=== PATIENT | female | born 1990 | race Hispanic/Latino ===

== ENCOUNTER 2020-11-08 06:05 | Emergency (ER) | payer OTHER ==
[2020-11-08 06:47] LABS: Hemoglobin 11.9 gm/dl (10.1-14.3); Mean Corpuscular HGB Conc 33 % (30-34); Mean Corpuscular Volume 82 fl (79-97); Platelet Count 316 K/mm3 (140-440); Red Blood Count 4.37 M/mm3 (3.65-5.03); Red Cell Distribution Width 14.1 % (13.2-15.2)
--- NOTE | 2020-11-08 06:59 | XRay Report ---
CHEST PA AND LATERAL VIEWS INDICATION: aCUTE chest pain. COMPARISON: None FINDINGS: Support devices: None Heart: Normal Lungs/Pleura: No acute pulmonary or pleural findings. IMPRESSION: 1. No active disease. Signer Name: Dane Wiggins MD Signed: 11/08/2020 6:55 AM Workstation Name: [id number]
[2020-11-08 07:01] LABS: INR 1.05 (0.87-1.13)
[2020-11-08 07:13] LABS: Alanine Aminotransferase 61 units/L (7-56); Albumin 4.1 g/dL (3.9-5); Blood Urea Nitrogen 9 mg/dL (7-17); Calcium 8.9 mg/dL (8.4-10.2); Hemolysis Index 22
[2020-11-08 07:18] LABS: BUN/Creatinine Ratio 15
[2020-11-08] MEDS ORDERED: SODIUM CHLORIDE 0.9% 1000 ML 1,000 ML IV ONE (07:39)
[2020-11-08] MEDS ORDERED: ONDANSETRON 4 MG/2 ML INJ IV ONE (07:39)
[2020-11-08] MEDS ORDERED: FAMOTIDINE 20 MG/2 ML INJ IV ONE ×2 (07:39→07:42)
[2020-11-08] MEDS ORDERED: MORPHINE 4 MG/1 ML INJ IV ONE (07:39)
[2020-11-08] MEDS ORDERED: PANTOPRAZOLE 40 MG TAB PO ONE ×2 (07:39→07:42)
[2020-11-08] MEDS ORDERED: ONDANSETRON 4 MG/2 ML INJ ONE (07:42)
[2020-11-08] MEDS ORDERED: SODIUM CHLORIDE 0.9% 1000 ML 1,000 ML ONE (07:42)
[2020-11-08] MEDS ORDERED: MORPHINE 4 MG/1 ML INJ ONE (07:43)
--- NOTE | 2020-11-08 07:47 | Emergency Department Report ---
ED General Adult HPI - General Chief complaint: Chest Pain Stated complaint: My left chest hurts, I am not sure if it is gas PUI?: No Time Seen by Provider: 11/08/20 07:20 Source: patient, RN notes reviewed Mode of arrival: Ambulatory Limitations: No Limitations - History of Present Illness Initial comments: The patient was evaluated in the emergency department for symptoms described in the history of present illness. He/she was evaluated in the context of the global COVID-19 pandemic, which necessitated consideration that the patient might be at risk for infection with the virus that causes COVID-19. Institutional protocols and algorithms that pertain to the evaluation of patients at risk for COVID-19 are in a state of rapid change based on information released by regulatory bodies including the CDC and federal and state organizations. These policies and algorithms were followed during the patient's care in the emergency department. Please note that these policies, procedures and recommendations changed on a rapid basis. During the entire history and physical examination, I am chaperoned by finishing tunnel operator/Human Resources District Manager Sandra Frankel This is a pleasant 30-year-old female. She is not known to myself previously. The patient presents to the ER today with a complaint of epigastric, right upper quadrant pain, and retrosternal, and left-sided chest wall pain. Pain started at 12:00 this morning. The pain is intermittent. It increases with palpation and deep inspiration. Positive nausea. Positive pleuritic discomfort. Her chest pain does not radiate to the back, arms or neck. No diaphoresis. No exertional shortness of breath. She takes oral contraceptives; estarylla ( Ethinyl estradiol and norgestimate). She denies a personal/family history of DVT pulmonary embolism, and ischemic heart disease, and has not recently consumed aspirin. Also reports and endoscopic diagnosis of H. pylori. Denies headache, neck pain, lower abdominal pain, urinary symptoms, loss of taste and smell, muscular aches, reports that she is not and has not delivered or given in the past 6 weeks. -: Gradual Location: chest, abdomen Radiation: back Severity scale (0 -10): 6 Quality: aching Consistency: other Improves with: other Worsens with: other Associated Symptoms: other - Related Data Previous Rx's Medication Instructions Recorded Last Taken Type Metoclopramide [Reglan] 10 mg PO Q6HR PRN #30 tab 11/08/20 Unknown Rx levoFLOXacin [Levaquin] 750 mg PO QDAY #9 tablet 11/08/20 Unknown Rx oxyCODONE /ACETAMINOPHEN [Percocet 1 tab PO Q6HR PRN #15 tab 11/08/20 Unknown Rx 5/325] Allergies Allergy/AdvReac Type Severity Reaction Status Date / Time No Known Allergies Allergy Unverified 11/08/20 06:09 ED Review of Systems ROS: Stated complaint: CHEST PAIN Other details as noted in HPI Constitutional: denies: fever Eyes: denies: vision change ENT: denies: epistaxis Respiratory: denies: cough Cardiovascular: chest pain Gastrointestinal: abdominal pain, nausea Genitourinary: denies: dysuria Musculoskeletal: back pain Neurological: denies: weakness Psychiatric: anxiety Hematological/Lymphatic: denies: easy bleeding ED Past Medical Hx - Past Medical History Previous Medical History?: Yes Additional medical history: Hypothyroid. ulcers - Surgical History Past Surgical History?: No - Social History Smoking Status: Never Smoker Substance Use Type: None - Medications Home Medications: Home Medications Medication Instructions Recorded Confirmed Last Taken Type Metoclopramide [Reglan] 10 mg PO Q6HR PRN #30 tab 11/08/20 Unknown Rx levoFLOXacin [Levaquin] 750 mg PO QDAY #9 tablet 11/08/20 Unknown Rx oxyCODONE /ACETAMINOPHEN [Percocet 1 tab PO Q6HR PRN #15 tab 11/08/20 Unknown Rx 5/325] ED Physical Exam - General Limitations: No Limitations General appearance: alert, anxious, obese - Head Head exam: Present: atraumatic, normocephalic - Eye Eye exam: Present: normal appearance, EOMI. Absent: nystagmus - ENT ENT exam: Present: normal exam, normal orophraynx, mucous membranes moist, normal external ear exam - Neck Neck exam: Present: normal inspection, full ROM. Absent: tenderness, meningismus - Respiratory Respiratory exam: Present: normal lung sounds bilaterally, chest wall tenderness. Absent: respiratory distress, wheezes, rales, rhonchi, stridor - Cardiovascular Cardiovascular Exam: Present: regular rate, normal rhythm, normal heart sounds. Absent: bradycardia, tachycardia, irregular rhythm, systolic murmur, diastolic murmur, rubs, gallop - GI/Abdominal GI/Abdominal exam: Present: soft, tenderness, other (There is epigastric and right upper quadrant tenderness to deep palpation.). Absent: distended, guar ding, rebound, rigid, pulsatile mass - Extremities Exam Extremities exam: Present: normal inspection, full ROM, other (2+ pulses noted in the bilateral upper and lower extremities. There is no palpable cord. negative Homans sign. Muscular compartments are soft. The pelvis is stable.). Absent: pedal edema, calf tenderness - Back Exam Back exam: Present: normal inspection, full ROM. Absent: tenderness, CVA tenderness (R), CVA tenderness (L), paraspinal tenderness, vertebral tenderness - Neurological Exam Neurological exam: Present: alert, oriented X3, normal gait, other (No facial droop. Tongue midline. Extraocular movements intact bilaterally. Facial sensation intact to light touch in V1, V2, V3 distribution bilaterally. 5 and a 5 strength in 4 extremities. Sensation intact to light touch in 4 extremities.). Absent: motor sensory deficit - Psychiatric Psychiatric exam: Present: normal affect, normal mood, anxious - Skin Skin exam: Present: warm, dry, intact, normal color. Absent: rash ED Course Vital Signs 11/08/20 11/08/20 11/08/20 06:16 07:39 07:48 Temperature 98.0 F Pulse Rate 80 Respiratory 18 Rate Blood Pressure Blood Pressure 120/68 [Right] O2 Sat by Pulse 97 98 Oximetry 11/08/20 11/08/20 11/08/20 08:00 08:08 08:15 Temperature Pulse Rate 71 78 Respiratory 22 18 Rate Blood Pressure 122/68 126/85 Blood Pressure [Right] O2 Sat by Pulse 98 99 99 Oximetry 11/08/20 11/08/20 11/08/20 09:12 09:46 10:30 Temperature Pulse Rate 81 67 69 Respiratory 20 25 H Rate Blood Pressure 126/85 127/77 110/68 Blood Pressure [Right] O2 Sat by Pulse 98 98 99 Oximetry - Reevaluation(s) Reevaluation #1: 11/08/20 07:50 Differential diagnosis, including but not limited to: Cholecystitis, pancreatitis, choledocholithiasis, GERD, gastritis, hiatal hernia, pneumonia, coronary artery disease, pulmonary embolism Assessment and plan: 30-year-old female with reproducible left-sided chest wall pain, who is not currently tachycardic, tachypneic or hypoxic, who denies DVT and pulmonary embolism risk factors, low risk by Wells criteria for pulmonary embolism, but does take combination oral contraceptive use, who is an unremarkable EKG, is low risk for major adverse cardiac event as per heart score, with equal pulses in the upper and lower extremities, unremarkable x-ray of the chest, no pulsatile abdominal mass, this is very unlikely to be aortic disease. She also has right upper quadrant tenderness, transaminitis, and elevated lipase. We will start with right upper quadrant ultrasound, send D-dimer to risk stratify for pulmonary embolism, and treat patient's symptoms. We have discussed this plan of care with the patient, who verbalized understanding and is amenable to this plan of care. Repeat troponin/repeat EKG ordered, time for 830 this morning. 11/08/20 09:38 Patient is reassessed. EKG unchanged x2. Troponin negative x2. D-dimer negative. Right upper quadrant ultrasound pending interpretation. Patient states she feels improved. 11/08/20 11:20 Final reassessment. Right upper quadrant ultrasound shows evidence of stones, without cholecystitis. CT scan abdomen pelvis shows no CT evidence of pancreatitis, no CT evidence of cholecystitis, and very mild gallbladder wall edema. Abdomen tenderness is improved. No active vomiting. Tolerating liquid feeds. Contacted our general surgeon on-call, Dr. Aleman, I discussed the patient's history, physical, pertinent laboratory studies and imaging studies with Dr. Aleman. She is in agreement that since the patient has clinically improved, has a soft belly at this time, tolerating liquid feeds, with no active vomiting, it would be reasonable to start the patient on oral antibiotics, and have the patient closely follow-up as an outpatient for further evaluation. Specifically advises that emergent cholecystectomy is not necessary or indicated at this time. I am in agreement. I have gone back and discussed this with the patient. I informed the patient of her laboratory studies, CAT scan and ultrasound findings, and I engage the patient in shared decision making. I did offer the patient admission, versus discharge with oral antibiotics and close outpatient follow-up with return pre cautions. Patient prefers to be discharged with oral antibiotics, and indicates reliability to follow-up. Therefore, through shared decision-making, patient will be discharged with oral antibiotics pain medication, nausea medication, and instructions to follow-up. Return precautions are reviewed. Patient is currently alert, oriented, sober, exhibits decision-making capacity, is free from distracting injury, and is reliable to follow-up, or return if clinically worsened. I will also give the patient copies of her laboratory studies, and ultrasound/CT scan abdomen pelvis reports. Reevaluation #2: 11/09/20 10:38 Called patient to follow-up today. She is feeling "okay." She is able to eat and drink, and has felt improved after pain medication and antibiotics. She is going to follow-up with her primary care doctor tomorrow. Patient endorses reliability to follow-up, and I have again reiterated return precautions ED Medical Decision Making - Lab Data Result diagrams: 11/08/20 06:30 11/08/20 06:30 Vital Signs 11/08/20 11/08/20 06:16 07:39 Temperature 98.0 F Pulse Rate 80 Respiratory 18 Rate Blood Pressure 120/68 [Right] O2 Sat by Pulse 97 Oximetry Lab Results 11/08/20 11/08/20 11/08/20 Range/Units 06:30 06:30 06:30 WBC 7.8 (4.5-11.0) K/mm3 RBC 4.37 (3.65-5.03) M/mm3 Hgb 11.9 (10.1-14.3) gm/dl Hct 36.0 (30.3-42.9) % MCV 82 (79-97) fl MCH 27 L (28-32) pg MCHC 33 (30-34) % RDW 14.1 (13.2-15.2) % Plt Count 316 (140-440) K/mm3 PT 13.6 (12.2-14.9) Sec. INR 1.05 (0.87-1.13) Sodium 137 (137-145) mmol/L Potassium 4.1 (3.6-5.0) mmol/L Chloride 103.6 (98-107) mmol/L Carbon Dioxide 23 (22-30) mmol/L Anion Gap 15 mmol/L BUN 9 (7-17) mg/dL Creatinine 0.6 (0.6-1.2) mg/dL Estimated GFR > 60 ml/min BUN/Creatinine Ratio 15 % Glucose 155 H (65-100) mg/dL Calcium 8.9 (8.4-10.2) mg/dL Magnesium 1.80 (1.7-2.3) mg/dL Total Bilirubin 0.70 (0.1-1.2) mg/dL AST 111 H (5-40) units/L ALT 61 H (7-56) units/L Alkaline Phosphatase 106 (35-129) units/L Total Creatine Kinase 61 (30-135) units/L Troponin T < 0.010 (0.00-0.029) ng/mL Total Protein 7.6 (6.3-8.2) g/dL Albumin 4.1 (3.9-5) g/dL Albumin/Globulin Ratio 1.2 % Lipase 402 H (13-60) units/L HCG, Quant (0-4) mIU/mL 11/08/20 Range/Units 06:30 WBC (4.5-11.0) K/mm3 RBC (3.65-5.03) M/mm3 Hgb (10.1-14.3) gm/dl Hct (30.3-42.9) % MCV (79-97) fl MCH (28-32) pg MCHC (30-34) % RDW (13.2-15.2) % Plt Count (140-440) K/mm3 PT (12.2-14.9) Sec. INR (0.87-1.13) Sodium (137-145) mmol/L Potassium (3.6-5.0) mmol/L Chloride (98-107) mmol/L Carbon Dioxide (22-30) mmol/L Anion Gap mmol/L BUN (7-17) mg/dL Creatinine (0.6-1.2) mg/dL Estimated GFR ml/min BUN/Creatinine Ratio % Glucose (65-100) mg/dL Calcium (8.4-10.2) mg/dL Magnesium (1.7-2.3) mg/dL Total Bilirubin (0.1-1.2) mg/dL AST (5-40) units/L ALT (7-56) units/L Alkaline Phosphatase (35-129) units/L Total Creatine Kinase (30-135) units/L Troponin T (0.00-0.029) ng/mL Total Protein (6.3-8.2) g/dL Albumin (3.9-5) g/dL Albumin/Globulin Ratio % Lipase (13-60) units/L HCG, Quant < 2 (0-4) mIU/mL - EKG Data -: EKG Interpreted by Fl EKG shows normal: sinus rhythm Rate: normal - EKG Data 11/08/20 07:52 EKG interpreted by myself at 6:25 AM. Sinus rhythm, 76 bpm, normal axis, normal intervals, unremarkable EKG, low voltage in the inferior leads, there is no prior for comparison, this EKG is not a STEMI. - Radiology Data Radiology results: pending, report reviewed, image reviewed X-ray the chest is negative for acute findings. CT ABDOMEN AND PELVIS WITH CONTRAST INDICATION / CLINICAL INFORMATION: Cholelithiasis, pancreatitis, transaminitis x1day [id number] 100ml. TECHNIQUE: Axial CT images were obtained through the abdomen and pelvis after IV contrast. All CT scans at this location are performed using CT dose reduction for ALARA by means of automated exposure control. COMPARISON: Ultrasound dated 11/08/20 FINDINGS: LOWER CHEST: No significant abnormality. LIVER: Liver is diffusely hypodense characteristic of fatty infiltration. No focal abnormality. GALLBLADDER: No calcified gallstones. Mild gallbladder wall edema but no inflammation. BILE DUCTS: No significant abnormality. PANCREAS: No significant abnormality. SPLEEN: No significant abnormality. ADRENALS: No significant abnormality. RIGHT KIDNEY / URETER: No significant abnormality. LEFT KIDNEY / URETER: No significant abnormality. STOMACH / SMALL BOWEL: No significant abnormality. COLON: No significant abnormality. APPENDIX: No significant abnormality. PERITONEUM: No free fluid. No free air. No fluid collection. LYMPH NODES: No significant adenopathy. AORTA / ARTERIES: No significant abnormality. IVC / VEINS: No significant abnormality. URINARY BLADDER: No significant abnormality. REPRODUCTIVE ORGANS: No significant abnormality. ADDITIONAL FIN DINGS: None. SKELETAL SYSTEM: No significant abnormality. IMPRESSION: 1. Hepatic steatosis. 2. No calcified gallstones but mild gallbladder wall edema without inflammation. No CT evidence for acute cholecystitis. 3. No CT evidence for pancreatitis. Signer Name: Dustin Hamilton MD Signed: 11/08/2020 9:45 AM Workstation Name: [id number] ULTRASOUND ABDOMEN, LIMITED INDICATION / CLINICAL INFORMATION: Right upper quadrant pain. COMPARISON: None available. FINDINGS: PANCREAS: Visualized por tion shows no significant abnormality. LIVER: Liver is diffusely echogenic and heterogeneous characteristic of fatty infiltration. GALLBLADDER: Contracted around multiple gallstones. No gallbladder wall thickening or edema. BILE DUCTS: No significant abnormality. Common bile duct measures 3 mm. FREE FLUID: None. ADDITIONAL FINDINGS: None. IMPRESSION: 1. Cholelithiasis without definite sonographic evidence for acute cholecystitis. 2. Hepatic steatosis. Signer Name: Dustin Hamilton MD Signed: 11/08/2020 8:45 AM Workstation Name: [id number] Critical care attestation.: If time is entered above; I have spent that time in minutes in the direct care of this critically ill patient, excluding procedure time. ED Disposition Clinical Impression: Chest wall pain, Right upper quadrant pain, Transaminitis, Elevated lipase, Cholelithiases Disposition: - TO HOME OR SELFCARE Is pt being admited?: No Does the pt Need Aspirin: No Condition: Good Instructions: Cholelithiasis, [id number], Acute Pancreatitis Additional Instructions: Do not take Motrin, ibuprofen, Naprosyn, Aleve, heavy or spicy foods. Avoid consumption of alcohol. Avoid consumption of fatty foods, rich foods, and advance diet as tolerated. Take the pain medication as needed and directed. Exercise caution when taking Percocet, do not drive or consume alcohol, or make important decisions when taking this medication. Be careful with this medication, as it may cause sleepiness, it may be habit-forming, and it may cause constipation. Please follow-up with a general surgeon within the next 3 to 5 days. Do not take metformin medication for the next 2 days, if patient takes this medication. Dr. Aleman is a local general surgeon at this hospital, however, it does not appear that she is in the patient's insurance network. Therefore, the patient should contact her primary care doctor or her insurance provider, and find a general surgeon who is in her network. Patient is going to be given copies of her laboratory studies and radiology studies. Please return to the emergency room right away with new pain, worsened pain, migration of pain, projectile vomiting, change in mental status, confusion, inability to tolerate liquid feeds, new, worsened or different symptoms not present on the initial emergency room evaluation, intractable fevers. Patient may take Tylenol [id number] as needed for pain, in conjunction with her Percocet. Please note that Percocet has 325 mg of Tylenol, maximum daily dose of Tylenol should not exceed 3 g per 24 hours. Prescriptions: levoFLOXacin [Levaquin] 750 mg PO QDAY #9 tablet oxyCODONE /ACETAMINOPHEN [Percocet 5/325] 1 tab PO Q6HR PRN #15 tab PRN Reason: Pain , Severe (7-10) Metoclopramide [Reglan] 10 mg PO Q6HR PRN #30 tab PRN Reason: Nausea Referrals: NARCSIA ALEMAN MD [Staff Physician] - 3-5 Days
--- NOTE | 2020-11-08 09:49 | Ultrasound Report ---
ULTRASOUND ABDOMEN, LIMITED INDICATION / CLINICAL INFORMATION: Right upper quadrant pain. COMPARISON: None available. FINDINGS: PANCREAS: Visualized portion shows no significant abnormality. LIVER: Liver is diffusely echogenic and heterogeneous characteristic of fatty infiltration. GALLBLADDER: Contracted around multiple gallstones. No gallbladder wall thickening or edema. BILE DUCTS: No significant abnormality. Common bile duct measures 3 mm. FREE FLUID: None. ADDITIONAL FINDINGS: None. IMPRESSION: 1. Cholelithiasis without definite sonographic evidence for acute cholecystitis. 2. Hepatic steatosis. Signer Name: Dustin Hamilton MD Signed: 11/08/2020 9:45 AM Workstation Name: [id number]
[2020-11-08 10:46] VITALS: BP 110/68
--- NOTE | 2020-11-08 10:50 | Cat Scan Report ---
CT ABDOMEN AND PELVIS WITH CONTRAST INDICATION / CLINICAL INFORMATION: Cholelithiasis, pancreatitis, transaminitis x1day [id number] 100ml. TECHNIQUE: Axial CT images were obtained through the abdomen and pelvis after IV contrast. All CT sc ans at this location are performed using CT dose reduction for ALARA by means of automated exposure c ontrol. COMPARISON: Ultrasound dated 11/08/20 FINDINGS: LOWER CHEST: No significant abnormality. LIVER: Liver is diffusely hypodense characteristic of fatty infiltration. No focal abnormality. GALLBLADDER: No calcified gallstones. Mild gallbladder wall edema but no inflammation. BILE DUCTS: No significant abnormality. PANCREAS: No significant abnormality. SPLEEN: No significant abnormality. ADRENALS: No significant abnormality. RIGHT KIDNEY / URETER: No significant abnormality. LEFT KIDNEY / URETER: No significant abnormality. STOMACH / SMALL BOWEL: No significant abnormality. COLON: No significant abnormality. APPENDIX: No significant abnormality. PERITONEUM: No free fluid. No free air. No fluid collection. LYMPH NODES: No significant adenopathy. AORTA / ARTERIES: No significant abnormality. IVC / VEINS: No significant abnormality. URINARY BLADDER: No significant abnormality. REPRODUCTIVE ORGANS: No significant abnormality. ADDITIONAL FINDINGS: None. SKELETAL SYSTEM: No significant abnormality. IMPRESSION: 1. Hepatic steatosis. 2. No calcified gallstones but mild gallbladder wall edema without inflammation. No CT evidence for a cute cholecystitis. 3. No CT evidence for pancreatitis. Signer Name: Dustin Hamilton MD Signed: 11/08/2020 10:45 AM Workstation Name: [id number]
[2020-11-08] MEDS ORDERED: levoFLOXacin 750 MG TAB PO ONE (11:20)
[2020-11-08] MEDS ORDERED: levoFLOXacin 750 MG TAB ONE (11:31)
--- NOTE | 2020-11-10 11:08 | Electrocardiograph Report ---
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
--- NOTE | 2020-11-10 11:08 | Electrocardiograph Report ---
[facility] Test Date: 2020-11-08 Test Time: 09:33:17 Pat Name: LAKEISHA SIDDIQI Department: Room: Gender: F [employer] [place]: SAMMY : 1990 Requested By: LENNIE ACEVEDO Order Number: [id number] Reading MD: Maxim Healy Measurements Intervals [place] Rate: 67 P: 5 NE: 161 QRS: 14 QRSD: 84 T: -3 QT: 391 QTc: 414 Interpretive Statements Sinus rhythm No previous ECG available for comparison Electronically Signed On 11-10-2020 8:08:33 PDT by Maxim Healy
== END 2020-11-08 12:36 | disposition home or self-care (01) ==
LOC: ED 06:05
DX: K80.20 Calculus of gallbladder without cholecystitis without obstruction (principal); R07.89 Other chest pain; R10.11 Right upper quadrant pain; R74.01 Elevation of levels of liver transaminase levels; R74.8 Abnormal levels of other serum enzymes; E03.9 Hypothyroidism, unspecified; Z79.899 Other long term (current) drug therapy
CPT/HCPCS: 36415; 71046; 74177; 76705; 80053; 82550; 83690; 83735; 84484; 84702; 85027; 85379; 85610; 93005; 96361; 96374; 96375; 99285; J2270; J2405; J7030; Q9967

== ENCOUNTER 2020-11-09 13:19 | Observation (INO) | payer OTHER ==
[2020-11-09] MEDS ORDERED: ONDANSETRON 4 MG/2 ML INJ IV ONE (13:36)
[2020-11-09] MEDS ORDERED: HYDROmorphone 1 MG/1 ML INJ IV ONE (13:36)
[2020-11-09] MEDS ORDERED: LACTATED RINGERS 1,000 ML IV ONE (13:37)
--- NOTE | 2020-11-09 13:37 | Emergency Department Report ---
ED General Adult HPI - General Chief complaint: Abdominal Pain Stated complaint: ABD PAIN PUI?: No Time Seen by Provider: 11/09/20 13:27 Source: patient, RN notes reviewed, old records reviewed Mode of arrival: Ambulatory Limitations: No Limitations - History of Present Illness Initial comments: The patient was evaluated in the emergency department for symptoms described in the history of present illness. He/she was evaluated in the context of the global COVID-19 pandemic, which necessitated consideration that the patient m ight be at risk for infection with the virus that causes COVID-19. Institutional protocols and algorithms that pertain to the evaluation of patients at risk for COVID-19 are in a state of rapid change based on information released by regulatory bodies including the CDC and federal and state organizations. These policies and algorithms were followed during the patient's care in the emergency department. Please note that these policies, procedures and recommendations changed on a rapid basis. This is a 30-year-old female. I evaluated her yesterday. She presented to the ER with epigastric and chest wall pain, was found to have evidence of pancreatitis, transaminitis, and nonspecific gallbladder wall edema. The patient elected to be discharged with oral antibiotics, pain medication, nausea medication, after extensive discussion, including a risk-benefit analysis, and shared decision making. I called earlier on this morning, and she stated that she was doing "okay, but she called me a few hours later, with a complaint of recurrent/worsening abdominal pain, nausea and vomiting. She was able to take her Levaquin, denies fever, but endorses diffuse abdominal cramping, nausea, lightheadedness. Her symptoms so far are constant. She only ate grapes today. -: Sudden Location: abdomen Radiation: non-radiation Quality: aching Consistency: constant Improves with: none Worsens with: eating - Related Data Previous Rx's Medication Instructions Recorded Last Taken Type Metoclopramide [Reglan] 10 mg PO Q6HR PRN #30 tab 11/08/20 Unknown Rx levoFLOXacin [Levaquin] 750 mg PO QDAY #9 tablet 11/08/20 Unknown Rx oxyCODONE /ACETAMINOPHEN [Percocet 1 tab PO Q6HR PRN #15 tab 11/08/20 Unknown Rx 5/325] Allergies Allergy/AdvReac Type Severity Reaction Status Date / Time No Known Allergies Allergy Unverified 11/08/20 06:09 ED Review of Systems ROS: Stated complaint: ABD PAIN Other details as noted in HPI Constitutional: malaise, weakness. denies: fever Eyes: denies: eye discharge ENT: denies: epistaxis Respiratory: denies: cough Cardiovascular: denies: chest pain Gastrointestinal: abdominal pain, nausea, vomiting Genitourinary: denies: dysuria Musculoskeletal: denies: back pain Neurological: weakness Psychiatric: anxiety Hematological/Lymphatic: denies: easy bleeding ED Past Medical Hx - Past Medical History Previous Medical History?: Yes Additional medical history: Hypothyroid. ulcers, Abd pain - Surgical History Past Surgical History?: No - Social History Smoking Status: Never Smoker Substance Use Type: None - Medications Home Medications: Home Medications Medication Instructions Recorded Confirmed Last Taken Type Metoclopramide [Reglan] 10 mg PO Q6HR PRN #30 tab 11/08/20 11/10/20 Unknown Rx levoFLOXacin [Levaquin] 750 mg PO QDAY #9 tablet 11/08/20 11/10/20 Unknown Rx oxyCODONE /ACETAMINOPHEN [Percocet 1 tab PO Q6HR PRN #15 tab 11/08/20 11/10/20 Unknown Rx 5/325] ED Physical Exam - General Limitations: No Limitations General appearance: anxious, in distress, obese - Head Head exam: Present: atraumatic, normocephalic - Eye Eye exam: Present: normal appearance, EOMI. Absent: nystagmus - ENT ENT exam: Present: normal exam, normal orophraynx, mucous membranes moist, normal external ear exam - Neck Neck exam: Present: normal inspection, full ROM. Absent: tenderness, meningismus - Respiratory Respiratory exam: Present: normal lung sounds bilaterally. Absent: respiratory distress, wheezes, rales, rhonchi, stridor, decreased breath sounds - Cardiovascular Cardiovascular Exam: Present: regular rate, normal rhythm, normal heart sounds. Absent: bradycardia, tachycardia, irregular rhythm, systolic murmur, diastolic murmur, rubs, gallop - GI/Abdominal GI/Abdominal exam: Present: soft, tenderness, other (There is epigastric tenderness. There is bilateral upper quadrant tenderness.). Absent: distended, guarding, rebound, rigid, pulsatile mass - Extremities Exam Extremities exam: Present: normal inspection, full ROM, other (2+ pulses noted in the bilateral upper and lower extremities. There is no palpable cord. negative Homans sign. Muscular compartments are soft. The pelvis is stable.). Absent: pedal edema, calf tenderness - Back Exam Back exam: Present: normal inspection, full ROM. Absent: tenderness, CVA tenderness (R), CVA tenderness (L), paraspinal tenderness, vertebral tenderness - Neurological Exam Neurological exam: Present: alert, normal gait, other (No facial droop. Tongue midline. Extraocular movements intact bilaterally. Facial sensation intact to light touch in V1, V2, V3 distribution bilaterally. 5 and a 5 strength in 4 extremities. Sensation intact to light touch in 4 extremities.). Absent: motor sensory deficit - Psychiatric Psychiatric exam: Present: anxious - Skin Skin exam: Present: warm, dry, intact, normal color. Absent: rash ED Course Vital Signs 11/09/20 11/09/20 11/09/20 13:27 13:47 14:00 Temperature 97.4 F L Pulse Rate 83 73 73 Respiratory 16 13 Rate Blood Pressure 134/79 126/81 Blood Pressure 120/86 [Left] O2 Sat by Pulse 98 100 Oximetry 11/09/20 11/09/20 11/09/20 14:30 16:03 16:15 Temperature Pulse Rate 74 79 72 Respiratory 20 22 Rate Blood Pressure 138/72 122/75 119/72 Blood Pressure [Left] O2 Sat by Pulse 98 97 Oximetry 11/09/20 11/09/20 11/09/20 16:31 16:45 17:01 Temperature Pulse Rate 73 71 81 Respiratory 22 19 17 Rate Blood Pressure 114/71 119/72 114/70 Blood Pressure [Left] O2 Sat by Pulse 97 97 97 Oximetry 11/09/20 11/09/20 11/09/20 18:49 18:51 19:01 Temperature Pulse Rate 62 Respiratory Rate Blood Pressure 114/73 114/73 Blood Pressure 114/73 [Left] O2 Sat by Pulse 99 100 99 Oximetry 11/09/20 11/09/20 11/09/20 19:31 20:01 20:31 Temperature Pulse Rate Respiratory Rate Blood Pressure 113/71 126/71 114/68 Blood Pressure [Left] O2 Sat by Pulse 98 96 98 Oximetry 11/09/20 11/09/20 11/09/20 20:47 20:58 21:01 Temperature Pulse Rate Respiratory Rate Blood Pressure 121/77 121/77 121/77 Blood Pressure [Left] O2 Sat by Pulse 99 98 98 Oximetry 11/09/20 11/09/20 11/09/20 21:11 21:21 21:31 Temperature Pulse Rate Respiratory Rate Blood Pressure 120/66 110/68 110/68 Blood Pressure [Left] O2 Sat by Pulse 98 99 98 Oximetry 11/09/20 11/09/20 21:41 21:51 Temperature Pulse Rate Respiratory Rate Blood Pressure 118/67 110/63 Blood Pressure [Left] O2 Sat by Pulse 98 98 Oximetry - Reevaluation(s) Reevaluation #1: 11/09/20 13:54 Differential diagnosis, including but not limited to: Pancreatitis, biliary colic, gallstone pancreatitis, choledocholithiasis, cholecystitis Assessment and plan: 30-year-old female with worsening abdominal symptoms, who returned to the emergency room after she called me up on the phone, and I instructed her to come back for repeat evaluation. Suspect worsening of probable gallstone pancreatitis. This will likely require admission. We will treat her symptoms, and repeat laboratory studies. I will discuss with the [facility] surgeon on-call once her initial laboratory studies have resulted. I discussed this plan of care with the patient, who verbalized understanding, and is amenable to this plan of care. 11/09/20 18:33 Right upper quadrant ultrasound is reviewed and appreciated. It does not demonstrate. Cholecystitis, however, it does demonstrate a distended gallbladder, and the soil technologist reported a positive sonographic Keane sign to myself. I have contacted my general surgeon on-call, Dr. Aleman, And have discussed the patient's history, physical, and pertinent laboratory studies and imaging findings. Admission is recommended for fluids, antibiotics, supportive care, and acquisition of nuclear medicine HIDA study. Dr. Aleman will follow in consultation. I have discussed this plan of care with the patient, who is agreeable to the aforementioned plan of care. Hospital physician, Dr. Samuel Echevarria to admit patient to the medical service. Medical decision makin-year-old female with known transaminitis, known presence of choledocholithiasis, failed outpatient management with antiemetics, pain medication, nausea medication, to be admitted for supportive care, serial abdominal exams, urgent general surgical consultation, and urgent acquisition of HIDA scan to evaluate biliary colic versus cholecystitis. ED Medical Decision Making - Lab Data Result diagrams: 11/10/20 04:28 11/10/20 04:28 Vital Signs 11/09/20 11/09/20 13:27 13:47 Temperature 97.4 F L Pulse Rate 83 73 Respiratory 16 Rate Blood Pressure 134/79 Blood Pressure 120/86 [Left] O2 Sat by Pulse 98 100 Oximetry Vital Signs 11/09/20 11/09/20 13:27 13:47 Temperature 97.4 F L Pulse Rate 83 73 Respiratory 16 Rate Blood Pressure 134/79 Blood Pressure 120/86 [Left] O2 Sat by Pulse 98 100 Oximetry Lab Results 11/09/20 11/09/20 11/09/20 Range/Units 13:52 13:52 13:52 WBC 10.3 (4.5-11.0) K/mm3 RBC 4.38 (3.65-5.03) M/mm3 Hgb 12.1 (10.1-14.3) gm/dl Hct 36.6 (30.3-42.9) % MCV 84 (79-97) fl MCH 28 (28-32) pg MCHC 33 (30-34) % RDW 14.2 (13.2-15.2) % Plt Count 312 (140-440) K/mm3 Lymph % (Auto) 10.3 L (13.4-35.0) % [place] % (Auto) 6.6 (0.0-7.3) % Eos % (Auto) 0.9 (0.0-4.3) % Baso % (Auto) 0.4 (0.0-1.8) % Lymph # (Auto) 1.1 L (1.2-5.4) K/mm3 [place] # (Auto) 0.7 (0.0-0.8) K/mm3 Eos # (Auto) 0.1 (0.0-0.4) K/mm3 Baso # (Auto) 0.0 (0.0-0.1) K/mm3 Seg Neutrophils % 81.8 H (40.0-70.0) % Seg Neutrophils # 8.4 H (1.8-7.7) K/mm3 PT 14.7 (12.2-14.9) Sec. INR 1.15 H (0.87-1.13) APTT 28.2 (24.2-36.6) Sec. Sodium 135 L (137-145) mmol/L Potassium 3.8 (3.6-5.0) mmol/L Chloride 99.6 (98-107) mmol/L Carbon Dioxide 22 (22-30) mmol/L Anion Gap 17 mmol/L BUN 8 (7-17) mg/dL Creatinine 0.7 (0.6-1.2) mg/dL Estimated GFR > 60 ml/min BUN/Creatinine Ratio 11 % Glucose 90 (65-100) mg/dL Lactic Acid (0.7-2.0) mmol/L Calcium 9.1 (8.4-10.2) mg/dL Magnesium 1.60 L (1.7-2.3) mg/dL Total Bilirubin 0.40 (0.1-1.2) mg/dL AST 74 H (5-40) units/L ALT 109 H (7-56) units/L Alkaline Phosphatase 103 (35-129) units/L Total Creatine Kinase 53 (30-135) units/L Total Protein 7.0 (6.3-8.2) g/dL Albumin 3.8 L (3.9-5) g/dL Albumin/Globulin Ratio 1.2 % Lipase 43 (13-60) units/L // Range/Units 13:52 WBC (4.5-11.0) K/mm3 RBC (3.65-5.03) M/mm3 Hgb (10.1-14.3) gm/dl Hct (30.3-42.9) % MCV (79-97) fl MCH (28-32) pg MCHC (30-34) % RDW (13.2-15.2) % Plt Count (140-440) K/mm3 Lymph % (Auto) (13.4-35.0) % [place] % (Auto) (0.0-7.3) % Eos % (Auto) (0.0-4.3) % Baso % (Auto) (0.0-1.8) % Lymph # (Auto) (1.2-5.4) K/mm3 [place] # (Auto) (0.0-0.8) K/mm3 Eos # (Auto) (0.0-0.4) K/mm3 Baso # (Auto) (0.0-0.1) K/mm3 Seg Neutrophils % (40.0-70.0) % Seg Neutrophils # (1.8-7.7) K/mm3 PT (12.2-14.9) Sec. INR (0.87-1.13) APTT (24.2-36.6) Sec. Sodium (137-145) mmol/L Potassium (3.6-5.0) mmol/L Chloride (98-107) mmol/L Carbon Dioxide (22-30) mmol/L Anion Gap mmol/L BUN (7-17) mg/dL Creatinine (0.6-1.2) mg/dL Estimated GFR ml/min BUN/Creatinine Ratio % Glucose (65-100) mg/dL Lactic Acid 1.60 (0.7-2.0) mmol/L Calcium (8.4-10.2) mg/dL Magnesium (1.7-2.3) mg/dL Total Bilirubin (0.1-1.2) mg/dL AST (5-40) units/L ALT (7-56) units/L Alkaline Phosphatase (35-129) units/L Total Creatine Kinase (30-135) units/L Total Protein (6.3-8.2) g/dL Albumin (3.9-5) g/dL Albumin/Globulin Ratio % Lipase (13-60) units/L - EKG Data -: EKG Interpreted by Md EKG shows normal: sinus rhythm Rate: normal - EKG Data When compared to previous EKG there are: no significant change 11/09/20 13:54 EKG time of interpretation, 13: 50 Sinus rhythm, 79 bpm. Normal axis, normal intervals, low voltage in the inferior leads. This EKG is not a STEMI. Appears to be grossly unchanged from prior EKG. - Radiology Data Radiology results: pending, report reviewed, image reviewed Right upper quadrant ultrasound from yesterday, CT scan abdomen pelvis, x-ray from chest yesterday reviewed and appreciated. ULTRASOUND ABDOMEN, LIMITED INDICATION / CLINICAL INFORMATION: Right upper quadrant pain. COMPARISON: None available. FINDINGS: PANCREAS: Visualized portion shows no significant abnormality. LIVER: Liver is diffusely echogenic and heterogeneous characteristic of fatty infiltration. GALLBLADDER: Contracted around multiple gallstones. No gallbladder wall thickening or edema. BILE DUCTS: No significant abnormality. Common bile duct measures 3 mm. FREE FLUID: None. ADDITIONAL FINDINGS: None. IMPRESSION: 1. Cholelithiasis without definite sonographic evidence for acute cholecystitis. 2. Hepatic steatosis. Signer Name: Dustin Hamilton MD Signed: 11/08/2020 8:45 AM Workstation Name: [id number] CT ABDOMEN AND PELVIS WITH CONTRAST INDICATION / CLINICAL INFORMATION: Cholelithiasis, pancreatitis, transaminitis x1day [id number] 100ml. TECHNIQUE: Axial CT images were obtained through the abdomen and pelvis after IV contrast. All CT scans at this location are performed using CT dose reduction for ALARA by means of automated exposure control. COMPARISON: Ultrasound dated 11/08/20 FINDINGS: LOWER CHEST: No significant abnormality. LIVER: Liver is diffusely hypodense characteristic of fatty infiltration. No focal abnormality. GALLBLADDER: No calcified gallstones. Mild gallbladder wall edema but no inflammation. BILE DUCTS: No significant abnormality. PANCREAS: No significant abnormality. SPLEEN: No significant abnormality. ADRENALS: No significant abnormality. RIGHT KIDNEY / URETER: No significant abnormality. LEFT KIDNEY / URETER: No significant abnormality. STOMACH / SMALL BOWEL: No significant abnormality. COLON: No significant abnormality. APPENDIX: No significant abnormality. PERITONEUM: No free fluid. No free air. No fluid collection. LYMPH NODES: No significant adenopathy. AORTA / ARTERIES: No significant abnormality. IVC / VEINS: No significant abnormality. URINARY BLADDER: No significant abnormality. REPRODUCTIVE ORGANS: No significant abnormality. ADDITIONAL FINDINGS: None. SKELETAL SYSTEM: No significant abnormality. IMPRESSION: 1. Hepatic steatosis. 2. No calcified gallstones but mild gallbladder wall edema without inflammation. No CT evidence for acute cholecystitis. 3. No CT evidence for pancreatitis. Signer Name: Dustin Hamilton MD Signed: 11/08/2020 9:45 AM Workstation Name: [id number] ULTRASOUND ABDOMEN, LIMITED INDICATION / CLINICAL INFORMATION: n/v ruq pain, known gall bladder stones. COMPARISON: Ultrasound abdomen limited dated 11/08/20. CT abdomen pelvis dated 11/08/20 FINDINGS: PANCREAS: Visualized portion shows no significant abnormality. LIVER: Echogenic liver characteristic of fatty infiltration. No change. GALLBLADDER: Gallbladder is moderately distended on the current study. Multiple echogenic gallstones are noted. No gallbladder wall thickening or edema. BILE DUCTS: No significant abnormality. Common bile duct measures 3.6 mm. FREE FLUID: None. ADDITIONAL FINDINGS: Right kidney appears normal. IMPRESSION: 1. Cholelithiasis without sonographic evide nce for acute cholecystitis. 2. Hepatic steatosis. Signer Name: Dustin Hamilton MD Signed: 11/09/2020 5:00 PM Workstation Name: [id number] Critical care attestation.: If time is entered above; I have spent that time in minutes in the direct care of this critically ill patient, excluding procedure time. ED Disposition Clinical Impression: Transaminitis, Right upper quadrant pain Cholelithiases Qualifiers: Cholelithiasis location: gallbladder Cholecystitis acuity: acute and chronic Disposition: DC-09 OP ADMIT IP TO THIS HOSP Is pt being admited?: Yes Does the pt Need Aspirin: No Condition: Good
[2020-11-09 14:11] LABS: Basophils % (Auto) 0.4 % (0.0-1.8); Eosinophils # (Auto) 0.1 K/mm3 (0.0-0.4); Eosinophils % (Auto) 0.9 % (0.0-4.3); Hematocrit 36.6 % (30.3-42.9); Hemoglobin 12.1 gm/dl (10.1-14.3); Lymphocytes # (Auto) 1.1 K/mm3 (1.2-5.4); Lymphocytes % (Auto) 10.3 % (13.4-35.0); Mean Corpuscular HGB Conc 33 % (30-34); Mean Corpuscular Volume 84 fl (79-97); Monocytes # (Auto) 0.7 K/mm3 (0.0-0.8); Monocytes % (Auto) 6.6 % (0.0-7.3); Platelet Count 312 K/mm3 (140-440); Red Blood Count 4.38 M/mm3 (3.65-5.03); Red Cell Distribution Width 14.2 % (13.2-15.2)
[2020-11-09 14:20] LABS: INR 1.15 (0.87-1.13)
[2020-11-09 14:21] LABS: Partial Thromboplastin Time 28.2 Sec. (24.2-36.6)
[2020-11-09 14:28] LABS: Alanine Aminotransferase 109 units/L (7-56); Albumin 3.8 g/dL (3.9-5); Blood Urea Nitrogen 8 mg/dL (7-17); Calcium 9.1 mg/dL (8.4-10.2); Hemolysis Index 10
[2020-11-09 14:29] LABS: BUN/Creatinine Ratio 11
[2020-11-09] MEDS ORDERED: MAGNESIUM SULFATE 2 GM/50 ML BAG IV ONE (14:29)
[2020-11-09] MEDS ORDERED: FAMOTIDINE 20 MG/2 ML INJ IV ONE (14:46)
[2020-11-09] MEDS ORDERED: ACETAMINOPHEN 325 MG TAB PO STA (14:46)
--- NOTE | 2020-11-09 18:04 | Ultrasound Report ---
ULTRASOUND ABDOMEN, LIMITED INDICATION / CLINICAL INFORMATION: n/v ruq pain, known gall bladder stones. COMPARISON: Ultrasound abdomen limited dated 11/08/20. CT abdomen pelvis dated 11/08/20 FINDINGS: PANCREAS: Visualized portion shows no significant abnormality. LIVER: Echogenic liver characteristic of fatty infiltration. No change. GALLBLADDER: Gallbladder is moderately distended on the current study. Multiple echogenic gallstones are noted. No gallbladder wall thickening or edema. BILE DUCTS: No significant abnormality. Common bile duct measures 3.6 mm. FREE FLUID: None. ADDITIONAL FINDINGS: Right kidney appears normal. IMPRESSION: 1. Cholelithiasis without sonographic evidence for acute cholecystitis. 2. Hepatic steatosis. Signer Name: Dustin Hamilton MD Signed: 11/09/2020 6:00 PM Workstation Name: [id number]
--- NOTE | 2020-11-09 21:58 | History and Physical Report ---
History of Present Illness Date of examination: 11/09/20 Date of admission: 11/09/20 18:49 Chief complaint: Right upper quadrant pain for 2 days History of present illness: 30-year-old female with no past medical history comes in for right upper quadrant and right epigastric pain. Patient came yesterday and was discharged in safe condition. Patient wanted to be discharged on oral antibiotics. Patient comes back for right upper quadrant pain associated with nausea and vomiting. Also increasing abdominal pain and nausea and vomiting. Patient was reevaluated and was found to have gallstones in the gallbladder has being admitted. Pain is about 8 on a scale of 1-10. Food is a exacerbating factor. Not eating anything is a relieving factor. - Past Medical History Previous Medical History?: Yes Additional medical history: Hypothyroid. ulcers, Abd pain - Surgical History Past Surgical History?: No - Social History Smoking Status: Never Smoker Substance Use Type: None - Medications Home Medications: Home Medications Medication Instructions Recorded Confirmed Last Taken Type Metoclopramide [Reglan] 10 mg PO Q6HR PRN #30 tab 11/08/20 Unknown Rx levoFLOXacin [Levaquin] 750 mg PO QDAY #9 tablet 11/08/20 Unknown Rx oxyCODONE /ACETAMINOPHEN [Percocet 1 tab PO Q6HR PRN #15 tab 11/08/20 Unknown Rx 5/325] Review of Systems ROS: Stated complaint: ABD PAIN Other details as noted in HPI Constitutional: malaise, weakness. denies: fever Eyes: denies: eye discharge ENT: denies: epistaxis Respiratory: denies: cough Cardiovascular: denies: chest pain Gastrointestinal: abdominal pain, nausea, vomiting Genitourinary: denies: dysuria Musculoskeletal: denies: back pain Neurological: weakness Psychiatric: anxiety Hematological/Lymphatic: denies: easy bleeding Medications and Allergies Allergies Allergy/AdvReac Type Severity Reaction Status Date / Time No Known Allergies Allergy Unverified 11/08/20 06:09 Home Medications Medication Instructions Recorded Confirmed Last Taken Type Metoclopramide [Reglan] 10 mg PO Q6HR PRN #30 tab 11/08/20 11/10/20 Unknown Rx levoFLOXacin [Levaquin] 750 mg PO QDAY #9 tablet 11/08/20 11/10/20 Unknown Rx oxyCODONE /ACETAMINOPHEN [Percocet 1 tab PO Q6HR PRN #15 tab 11/08/20 11/10/20 Unknown Rx 5/325] Exam - Constitutional Vitals: Temp Pulse Resp BP Pulse Ox 97.4 F L 62 17 114/68 98 11/09/20 13:27 11/09/20 18:51 11/09/20 17:01 11/09/20 20:31 11/09/20 20:31 General appearance: Present: no acute distress, well-nourished - EENT Eyes: Present: PERRL ENT: hearing intact, clear oral mucosa - Neck Neck: Present: supple, normal ROM - Respiratory Respiratory effort: normal Respiratory: bilateral: CTA - Cardiovascular Heart rate: 78 Rhythm: regular Heart Sounds: Present: S1 & S2. Absent: rub, click - Extremities Extremities: pulses symmetrical, No edema Peripheral Pulses: within normal limits - Abdominal General gastrointestinal: Present: soft, tender, non-distended, normal bowel sounds Localized gastrointestinal: tender: RUQ, guarding: RUQ Female genitourinary: Present: normal - Rectal Rectal Exam: deferred - Integumentary Integumentary: Present: clear, warm, dry - Musculoskeletal Musculoskeletal: gait normal, strength equal bilaterally - Psychiatric Psychiatric: appropriate mood/affect, intact judgment & insight - Neurologic Neurologic: CNII-XII intact, moves all extremities - Allied Health Allied health notes reviewed: nursing, case management Results - Labs CBC & Chem 7: 11/10/20 04:28 11/10/20 04:28 Labs: Laboratory Last Values WBC 10.3 K/mm3 (4.5-11.0) 11/09/20 13:52 RBC 4.38 M/mm3 (3.65-5.03) 11/09/20 13:52 Hgb 12.1 gm/dl (10.1-14.3) 11/09/20 13:52 Hct 36.6 % (30.3-42.9) 11/09/20 13:52 MCV 84 fl (79-97) 11/09/20 13:52 MCH 28 pg (28-32) 11/09/20 13:52 MCHC 33 % (30-34) 11/09/20 13:52 RDW 14.2 % (13.2-15.2) 11/09/20 13:52 Plt Count 312 K/mm3 (140-440) 11/09/20 13:52 Lymph % (Auto) 10.3 % (13.4-35.0) L 11/09/20 13:52 [place] % (Auto) 6.6 % (0.0-7.3) 11/09/20 13:52 Eos % (Auto) 0.9 % (0.0-4.3) 11/09/20 13:52 Baso % (Auto) 0.4 % (0.0-1.8) 11/09/20 13:52 Lymph # (Auto) 1.1 K/mm3 (1.2-5.4) L 11/09/20 13:52 [place] # (Auto) 0.7 K/mm3 (0.0-0.8) 11/09/20 13:52 Eos # (Auto) 0.1 K/mm3 (0.0-0.4) 11/09/20 13:52 Baso # (Auto) 0.0 K/mm3 (0.0-0.1) 11/09/20 13:52 Seg Neutrophils % 81.8 % (40.0-70.0) H 11/09/20 13:52 Seg Neutrophils # 8.4 K/mm3 (1.8-7.7) H 11/09/20 13:52 PT 14.7 Sec. (12.2-14.9) 11/09/20 13:52 INR 1.15 (0.87-1.13) H 11/09/20 13:52 APTT 28.2 Sec. (24.2-36.6) 11/09/20 13:52 Sodium 135 mmol/L (137-145) L 11/09/20 13:52 Potassium 3.8 mmol/L (3.6-5.0) 11/09/20 13:52 Chloride 99.6 mmol/L (98-107) 11/09/20 13:52 Carbon Dioxide 22 mmol/L (22-30) 11/09/20 13:52 Anion Gap 17 mmol/L 11/09/20 13:52 BUN 8 mg/dL (7-17) 11/09/20 13:52 Creatinine 0.7 mg/dL (0.6-1.2) 11/09/20 13:52 Estimated GFR > 60 ml/min 11/09/20 13:52 BUN/Creatinine Ratio 11 % 11/09/20 13:52 Glucose 90 mg/dL (65-100) 11/09/20 13:52 Lactic Acid 1.60 mmol/L (0.7-2.0) 11/09/20 13:52 Calcium 9.1 mg/dL (8.4-10.2) 11/09/20 13:52 Magnesium 1.60 mg/dL (1.7-2.3) L 11/09/20 13:52 Total Bilirubin 0.40 mg/dL (0.1-1.2) 11/09/20 13:52 AST 74 units/L (5-40) H 11/09/20 13:52 ALT 109 units/L (7-56) H 11/09/20 13:52 Alkaline Phosphatase 103 units/L (35-129) 11/09/20 13:52 Total Creatine Kinase 53 units/L (30-135) 11/09/20 13:52 Total Protein 7.0 g/dL (6.3-8.2) 11/09/20 13:52 Albumin 3.8 g/dL (3.9-5) L 11/09/20 13:52 Albumin/Globulin Ratio 1.2 % 11/09/20 13:52 Lipase 43 units/L (13-60) 11/09/20 13:52 Short CBC 11/09/20 Range/Units 13:52 WBC 10.3 (4.5-11.0) K/mm3 Hgb 12.1 (10.1-14.3) gm/dl Hct 36.6 (30.3-42.9) % Plt Count 312 (140-440) K/mm3 BMP 11/09/20 13:52 Sodium 135 L Potassium 3.8 Chloride 99.6 Carbon Dioxide 22 BUN 8 Creatinine 0.7 Glucose 90 Calcium 9.1 Cardiac Enzymes 11/09/20 Range/Units 13:52 Total Creatine Kinase 53 (30-135) units/L Liver Function 11/09/20 Range/Units 13:52 Total Bilirubin 0.40 (0.1-1.2) mg/dL AST 74 H (5-40) units/L ALT 109 H (7-56) units/L Alkaline Phosphatase 103 (35-129) units/L Albumin 3.8 L (3.9-5) g/dL Microbiology: Microbiology 11/09/20 13:52 Peripheral/Venous Blood Culture - Preliminary Culture in Progress 11/09/20 13:52 Peripheral/Venous Blood Culture - Preliminary Culture in Progress - Imaging and Cardiology CT scan - abdomen: report reviewed Imaging and Cardiology: CT abdomen and ultrasound of abdomen Cholelithiasis without sonographic evidence for acute cholecystitis Hepatic steatosis Assessment and Plan Advance Directives: Yes - Patient Problems (1) Cholelithiases Current Visit: Yes Status: Acute Qualifiers: Cholelithiasis location: gallbladder Cholecystitis acuity: acute and chronic Plan to address problem: Surgery consult requested Pain management in the meantime IV antibiotics in the meantime (2) Transaminitis Current Visit: Yes Status: Acute Plan to address problem: Transaminitis probably secondary to to gallstone induced obstruction which was transient (3) DVT prophylaxis Current Visit: Yes Status: Acute Plan to address problem: Heparin subcu and GI prophylaxis
[2020-11-09] MEDS ORDERED: ACETAMINOPHEN 325 MG TAB PO PRN (22:00)
[2020-11-09] MEDS ORDERED: HYDROmorphone 1 MG/1 ML INJ IV PRN (22:00)
[2020-11-09] MEDS: D5W/0.9% NACL 1,000 ML IV SCH (23:18)
[2020-11-09] MEDS: MORPHINE 2 MG/1 ML INJ IV PRN (23:19)
[2020-11-09] MEDS: ONDANSETRON 4 MG/2 ML INJ IV PRN (23:20)
[2020-11-10 04:59] LABS: Basophils % (Auto) 0.4 % (0.0-1.8); Eosinophils # (Auto) 0.2 K/mm3 (0.0-0.4); Eosinophils % (Auto) 2.9 % (0.0-4.3); Hematocrit 33.3 % (30.3-42.9); Hemoglobin 11.1 gm/dl (10.1-14.3); Lymphocytes # (Auto) 1.8 K/mm3 (1.2-5.4); Mean Corpuscular HGB Conc 33 % (30-34); Mean Corpuscular Volume 82 fl (79-97); Monocytes # (Auto) 0.5 K/mm3 (0.0-0.8); Monocytes % (Auto) 9.4 % (0.0-7.3); Platelet Count 305 K/mm3 (140-440); Red Blood Count 4.04 M/mm3 (3.65-5.03)
[2020-11-10 05:21] LABS: Alanine Aminotransferase 84 units/L (7-56); Albumin 3.7 g/dL (3.9-5); BUN/Creatinine Ratio 8; Blood Urea Nitrogen 6 mg/dL (7-17); Calcium 8.4 mg/dL (8.4-10.2); Hemolysis Index 0
--- NOTE | 2020-11-10 10:43 | Progress Note ---
Assessment and Plan Assessment and plan: #Cholelithiasis Abdominal imaging consistent with cholelithiasis with no cholecystitis. HIDA scan showed complete obstruction of cystic duct consistent with acute cholecystitis Surgery evaluation appreciated. Plan for laparoscopic cholecystectomy in a.m. On prophylactic antibiotics DVT prophylaxis-Lovenox History Interval history: 30-year-old female with no past medical history comes in for right upper quadrant and right epigastric pain. Patient came yesterday and was discharged in safe condition. Patient wanted to be discharged on oral antibiotics. P jos comes back for right upper quadrant pain associated with nausea and vomiting. Also increasing abdominal pain and nausea and vomiting. Patient was reevaluated and was found to have gallstones in the gallbladder has being admitted. Pain is about 8 on a scale of 1-10. Food is a exacerbating factor. Not eating anything is a relieving factor. Here patient had an abdominal imaging that cholelithiasis with no cholecystitis. Patient admitted for evaluation. Surgery consulted 11/10. Has some abdominal pain with palpation. Also positive Keane sign. Awaiting surgery evaluation. May need laparoscopic cholecystectomy. HIDA scan pending Hospitalist Physical - Physical exam Narrative exam: VITAL SIGNS: Reviewed. GENERAL: Awake HEAD: No signs of head trauma. EYES: Pupils are equal. Extraocular motions intact. MOUTH: Oropharynx is normal. NECK: No adenopathy, no JVD. CHEST: Chest with diminished breath sounds bilaterally. No wheezes, rales, or rhonchi. CARDIAC: normal S1 and S2, without murmurs, gallops, or rubs. ABDOMEN: Soft, slight tenderness on deep palpation around the epigastric/left u pper quadrant area, bowel sounds positive MUSCULOSKELETAL: No edema NEUROLOGIC EXAM: Alert and oriented x3. No focal neurologic deficits SKIN: No obvious lesions - Constitutional Vitals: Temp Pulse Resp BP Pulse Ox 98.3 F 84 16 119/68 97 11/10/20 04:52 11/10/20 04:52 11/10/20 04:52 11/10/20 04:52 11/10/20 04:52 Results - Labs CBC & Chem 7: 11/10/20 04:28 11/10/20 04:28 Labs: Laboratory Last Values WBC 5.7 K/mm3 (4.5-11.0) 11/10/20 04:28 RBC 4.04 M/mm3 (3.65-5.03) 11/10/20 04:28 Hgb 11.1 gm/dl (10.1-14.3) 11/10/20 04:28 Hct 33.3 % (30.3-42.9) 11/10/20 04:28 MCV 82 fl (79-97) 11/10/20 04:28 MCH 28 pg (28-32) 11/10/20 04:28 MCHC 33 % (30-34) 11/10/20 04:28 RDW 14.0 % (13.2-15.2) 11/10/20 04:28 Plt Count 305 K/mm3 (140-440) 11/10/20 04:28 Lymph % (Auto) 32.0 % (13.4-35.0) 11/10/20 04:28 [place] % (Auto) 9.4 % (0.0-7.3) H 11/10/20 04:28 Eos % (Auto) 2.9 % (0.0-4.3) 11/10/20 04:28 Baso % (Auto) 0.4 % (0.0-1.8) 11/10/20 04:28 Lymph # (Auto) 1.8 K/mm3 (1.2-5.4) 11/10/20 04:28 [place] # (Auto) 0.5 K/mm3 (0.0-0.8) 11/10/20 04:28 Eos # (Auto) 0.2 K/mm3 (0.0-0.4) 11/10/20 04:28 Baso # (Auto) 0.0 K/mm3 (0.0-0.1) 11/10/20 04:28 Seg Neutrophils % 55.3 % (40.0-70.0) 11/10/20 04:28 Seg Neutrophils # 3.1 K/mm3 (1.8-7.7) 11/10/20 04:28 PT 14.7 Sec. (12.2-14.9) 11/09/20 13:52 INR 1.15 (0.87-1.13) H 11/09/20 13:52 APTT 28.2 Sec. (24.2-36.6) 11/09/20 13:52 Sodium 141 mmol/L (137-145) 11/10/20 04:28 Potassium 3.6 mmol/L (3.6-5.0) 11/10/20 04:28 Chloride 103.9 mmol/L (98-107) 11/10/20 04:28 Carbon Dioxide 28 mmol/L (22-30) 11/10/20 04:28 Anion Gap 13 mmol/L 11/10/20 04:28 BUN 6 mg/dL (7-17) L 11/10/20 04:28 Creatinine 0.8 mg/dL (0.6-1.2) 11/10/20 04:28 Estimated GFR > 60 ml/min 11/10/20 04:28 BUN/Creatinine Ratio 8 % 11/10/20 04:28 Glucose 96 mg/dL (65-100) 11/10/20 04:28 Hemoglobin A1c 5.3 % (4-6) 11/10/20 04:28 Lactic Acid 1.60 mmol/L (0.7-2.0) 11/09/20 13:52 Calcium 8.4 mg/dL (8.4-10.2) 11/10/20 04:28 Magnesium 1.60 mg/dL (1.7-2.3) L 11/09/20 13:52 Total Bilirubin 0.30 mg/dL (0.1-1.2) 11/10/20 04:28 AST 40 units/L (5-40) 11/10/20 04:28 ALT 84 units/L (7-56) H 11/10/20 04:28 Alkaline Phosphatase 97 units/L (35-129) 11/10/20 04:28 Total Creatine Kinase 53 units/L (30-135) 11/09/20 13:52 Total Protein 6.6 g/dL (6.3-8.2) 11/10/20 04:28 Albumin 3.7 g/dL (3.9-5) L 11/10/20 04:28 Albumin/Globulin Ratio 1.3 % 11/10/20 04:28 Lipase 43 units/L (13-60) 11/09/20 13:52 Microbiology: Microbiology 11/09/20 13:52 Peripheral/Venous Blood Culture - Preliminary Culture in Progress 11/09/20 13:52 Peripheral/Venous Blood Culture - Preliminary Culture in Progress Lezama/IV: Voiding Method Toilet Active Medications - Current Medications Current Medications: Generic Name Dose Route Start Last Admin Trade Name Adolfoq PRN Reason Stop Dose Admin Acetaminophen 650 mg 11/09/20 22:00 Acetaminophen 325 Mg Tab PO Q4H PRN Pain MILD(1-3)/Fever >100.5/RUBIO Hydromorphone HCl 0.5 mg 11/09/20 22:00 Hydromorphone 1 Mg/1 Ml Inj IV Q3H PRN Pain , Severe (7-10) Dextrose/Sodium Chloride 1,000 mls @ 100 mls/hr 11/09/20 22:00 11/09/20 23:18 D5ns IV 100 mls/hr DIRECT EMILIA Administration Levofloxacin/Dextrose 750 mg in 150 mls @ 100 mls/hr 11/10/20 18:00 Levaquin 750mg/150ml IV Q24H EMILIA Protocol Morphine Sulfate 2 mg 11/09/20 22:00 11/09/20 23:19 Morphine 2 Mg/1 Ml Inj IV 2 mg Q4H PRN Administration Pain, Moderate (4-6) Ondansetron HCl 4 mg 11/09/20 22:00 11/09/20 23:20 Ondansetron 4 Mg/2 Ml Inj IV 4 mg Q8H PRN Administration Nausea And Vomiting Sodium Chloride 10 ml 11/09/20 22:00 11/09/20 23:19 Sodium Chloride 0.9% 10 Ml Flush Syringe IV 10 ml BID EMILIA Administration Sodium Chloride 10 ml 11/09/20 22:00 Sodium Chloride 0.9% 10 Ml Flush Syringe IV PRN PRN LINE FLUSH
--- NOTE | 2020-11-10 11:10 | Electrocardiograph Report ---
[facility] Test Date: 2020-11-09 Test Time: 13:47:02 Pat Name: LAKEISHA SIDDIQI Department: Room: [facility] 1 Gender: F [employer] [place]: MAGED : 1990 Requested By: LENNIE ACEVEDO Order Number: [id number] Reading MD: Maxim Healy Measurements Intervals [place] Rate: 79 P: 41 SC: 163 QRS: 36 QRSD: 89 T: -6 QT: 376 QTc: 430 Interpretive Statements Sinus rhythm Compared to ECG 11/08/2020 09:33:17 No significant changes Electronically Signed On 11-10-2020 8:10:42 PDT by Maxim Healy
--- NOTE | 2020-11-10 11:46 | Nuclear Medicine Report ---
NUCLEAR MEDICINE HEPATOBILIARY SCAN INDICATION: Cholecystitis versus biliary colic. COMPARISON: CT abdomen pelvis with contrast 11/08/2020. Ultrasound right upper quadrant 11/09/2020. TECHNIQUE: Radiotracer: Tc-99m mebrofenin (by IV): 5.5 mCi. Gallbladder Stimulant: None. FINDINGS: Hepatic activity: Normal. Biliary activity: Normal. Common bile duct activity at 10 minutes. Gallbladder activity: No gallbladder activity is detected out to 90 minutes of scanning. Small bowel activity: Normal at 20 minutes. IMPRESSION: Nonvisualization of the gallbladder out to 90 minutes on HIDA scan consistent with obstruction of th e cystic duct/acute cholecystitis. Please correlate with the patient's clinical presentation.. Signer Name: Milton Sousa Jr, MD Signed: 11/10/2020 11:42 AM Workstation Name: [id number]
--- NOTE | 2020-11-10 13:22 | Consultation ---
History of Present Illness Consult date: 11/10/20 Reason for consult: gallstones - History of present illness History of present illness: 30 year old female presented to the ED two times over the weekend with abdominal pain. It got progressively worse with nausea and vomiting after a brief relief in symptoms for a few hours. She was diagnosed with mild biliary pancreatis and discharged. On her second ED visit an US showed gallstones with no definite inflammation, and normalization of WBC. She was admitted and had a HIDA scan that demonstrated no filling of the gallbladder c/w cholecystitis. She says she has been having similar pain off and on weekly for several months. She expresses desire to have her gallbladder removed to prevent future attacks. Past History Past Medical History: hypothyroidism Past Surgical History: No surgical history Social history: no significant social history Medications and Allergies Allergies Allergy/AdvReac Type Severity Reaction Status Date / Time No Known Allergies Allergy Unverified 11/08/20 06:09 Home Medications Medication Instructions Recorded Confirmed Last Taken Type Metoclopramide [Reglan] 10 mg PO Q6HR PRN #30 tab 11/08/20 11/10/20 Unknown Rx levoFLOXacin [Levaquin] 750 mg PO QDAY #9 tablet 11/08/20 11/10/20 Unknown Rx oxyCODONE /ACETAMINOPHEN [Percocet 1 tab PO Q6HR PRN #15 tab 11/08/20 11/10/20 Unknown Rx 5/325] Active Meds: Active Medications Acetaminophen (Acetaminophen 325 Mg Tab) 650 mg PO Q4H PRN PRN Reason: Pain MILD(1-3)/Fever >100.5/RUBIO Hydromorphone HCl (Hydromorphone 1 Mg/1 Ml Inj) 0.5 mg IV Q3H PRN PRN Reason: Pain , Severe (7-10) Dextrose/Sodium Chloride (D5ns) 1,000 mls @ 100 mls/hr IV DIRECT EMILIA Last Admin: 11/09/20 23:18 Dose: 100 mls/hr Documented by: Levofloxacin/Dextrose (Levaquin 750mg/150ml) 750 mg in 150 mls @ 100 mls/hr IV Q24H EMILIA; Protocol Morphine Sulfate (Morphine 2 Mg/1 Ml Inj) 2 mg IV Q4H PRN PRN Reason: Pain, Moderate (4-6) Last Admin: 03/28/21 23:19 Dose: 2 mg Documented by: Ondansetron HCl (Ondansetron 4 Mg/2 Ml Inj) 4 mg IV Q8H PRN PRN Reason: Nausea And Vomiting Last Admin: 11/09/20 23:20 Dose: 4 mg Documented by: Sodium Chloride (Sodium Chloride 0.9% 10 Ml Flush Syringe) 10 ml IV BID EMILIA Last Admin: 11/09/20 23:19 Dose: 10 ml Documented by: Sodium Chloride (Sodium Chloride 0.9% 10 Ml Flush Syringe) 10 ml IV PRN PRN PRN Reason: LINE FLUSH Review of Systems - Constitutional no fever, no chills - Cardiovascular no chest pain - Respiratory no cough - Gastrointestinal abdominal pain, nausea, vomiting Exam Vital Signs Temp Pulse Resp BP Pulse Ox 97.4 F L 83 16 134/79 98 11/09/20 13:27 11/09/20 13:27 11/09/20 13:27 11/09/20 13:27 11/09/20 13:27 - General physical appearance Positive: well developed, well nourished, no distress, moderate pain, obese - Respiratory Positive: normal expansion, normal respiratory effort - Cardiovascular Heart Sounds: Present: S1 & S2 - Extremities Extremities: no ischemia - Abdomen Abdomen: Present: soft, other (tender to palpation RUQ). Absent: tender, rigid, wound Results - Labs 11/10/20 04:28 11/10/20 04:28 Abnormal lab results 11/09/20 11/09/20 11/09/20 Range/Units 13:52 13:52 13:52 Lymph % (Auto) 10.3 L (13.4-35.0) % [place] % (Auto) (0.0-7.3) % Lymph # (Auto) 1.1 L (1.2-5.4) K/mm3 Seg Neutrophils % 81.8 H (40.0-70.0) % Seg Neutrophils # 8.4 H (1.8-7.7) K/mm3 INR 1.15 H (0.87-1.13) Sodium 135 L (137-145) mmol/L BUN (7-17) mg/dL Magnesium 1.60 L (1.7-2.3) mg/dL AST 74 H (5-40) units/L ALT 109 H (7-56) units/L Albumin 3.8 L (3.9-5) g/dL 11/10/20 11/10/20 Range/Units 04:28 04:28 Lymph % (Auto) (13.4-35.0) % [place] % (Auto) 9.4 H (0.0-7.3) % Lymph # (Auto) (1.2-5.4) K/mm3 Seg Neutrophils % (40.0-70.0) % Seg Neutrophils # (1.8-7.7) K/mm3 INR (0.87-1.13) Sodium (137-145) mmol/L BUN 6 L (7-17) mg/dL Magnesium (1.7-2.3) mg/dL AST (5-40) units/L ALT 84 H (7-56) units/L Albumin 3.7 L (3.9-5) g/dL Diabetes panel 11/09/20 11/10/20 11/10/20 Range/Units 13:52 04:28 04:28 Sodium 135 L 141 (137-145) mmol/L Potassium 3.8 3.6 (3.6-5.0) mmol/L Chloride 99.6 103.9 (98-107) mmol/L Carbon Dioxide 22 28 (22-30) mmol/L BUN 8 6 L (7-17) mg/dL Creatinine 0.7 0.8 (0.6-1.2) mg/dL Glucose 90 96 (65-100) mg/dL Hemoglobin A1c 5.3 (4-6) % Calcium 9.1 8.4 (8.4-10.2) mg/dL AST 74 H 40 (5-40) units/L ALT 109 H 84 H (7-56) units/L Alkaline Phosphatase 103 97 (35-129) units/L Total Protein 7.0 6.6 (6.3-8.2) g/dL Albumin 3.8 L 3.7 L (3.9-5) g/dL Calcium panel 11/09/20 11/10/20 Range/Units 13:52 04:28 Calcium 9.1 8.4 (8.4-10.2) mg/dL Albumin 3.8 L 3.7 L (3.9-5) g/dL Pituitary panel 03/28/21 03/29/21 Range/Units 13:52 04:28 Sodium 135 L 141 (137-145) mmol/L Potassium 3.8 3.6 (3.6-5.0) mmol/L Chloride 99.6 103.9 (98-107) mmol/L Carbon Dioxide 22 28 (22-30) mmol/L BUN 8 6 L (7-17) mg/dL Creatinine 0.7 0.8 (0.6-1.2) mg/dL Glucose 90 96 (65-100) mg/dL Calcium 9.1 8.4 (8.4-10.2) mg/dL Adrenal panel 11/09/20 11/10/20 Range/Units 13:52 04:28 Sodium 135 L 141 (137-145) mmol/L Potassium 3.8 3.6 (3.6-5.0) mmol/L Chloride 99.6 103.9 (98-107) mmol/L Carbon Dioxide 22 28 (22-30) mmol/L BUN 8 6 L (7-17) mg/dL Creatinine 0.7 0.8 (0.6-1.2) mg/dL Glucose 90 96 (65-100) mg/dL Calcium 9.1 8.4 (8.4-10.2) mg/dL Total Bilirubin 0.40 0.30 (0.1-1.2) mg/dL AST 74 H 40 (5-40) units/L ALT 109 H 84 H (7-56) units/L Alkaline Phosphatase 103 97 (35-129) units/L Total Protein 7.0 6.6 (6.3-8.2) g/dL Albumin 3.8 L 3.7 L (3.9-5) g/dL - Imaging US - abdomen: report reviewed, image reviewed US - pelvic: report reviewed, image reviewed Assessment and Plan 30 year old female with cholelithiasis, cholecystitis. Afebrile and stable. Pt is consented for lap sangita scheduled for tomorrow. She expressed understanding of the risks and benefits.
[2020-11-10] MEDS: MORPHINE 2 MG/1 ML INJ IV PRN (19:06)
[2020-11-10] MEDS: ONDANSETRON 4 MG/2 ML INJ IV PRN (21:19)
[2020-11-11] MEDS: D5W/0.9% NACL 1,000 ML IV SCH (04:32)
[2020-11-11] MEDS ORDERED: MIDAZOLAM 2 MG/2 ML INJ IV NR (06:56)
[2020-11-11] MEDS ORDERED: LACTATED RINGERS 1,000 ML IV SCH (07:00)
--- NOTE | 2020-11-11 07:07 | Anesthesia Day of Surgery ---
Anesthesia Day of Surgery - Day of Surgery Patient Examined: Yes Patient H&P Reviewed: Yes Patient is NPO: Yes
--- NOTE | 2020-11-11 07:07 | Anesthesia Consultation ---
Anesthesia Consult and Med Hx Date of service: 11/11/20 - Airway Anesthetic Teeth Evaluation: Good ROM Head & Neck: Adequate Mental/Hyoid Distance: Adequate Mallampati Class: Class II Intubation Access Assessment: Good - Pulmonary Exam CTA: Yes - Cardiac Exam Cardiac Exam: RRR - Pre-Operative Health Status ASA Pre-Surgery Classification: ASA2 Proposed Anesthetic Plan: General - Pulmonary Hx Smoking: No Hx Sleep Apnea: No - Cardiovascular System Hx Heart Attack/AMI: No Hx Angina: No Hx Peripheral Vascular Disease: No - Gastrointestinal Hx Ulcer: Yes - Endocrine Hx Hypothyroidism: Yes - Other Systems Hx Cancer: No
[2020-11-11] MEDS ORDERED: LIDOCAINE (1%) 10 MG/1 ML VIAL 20 ML MDV ONE (07:11)
[2020-11-11] MEDS ORDERED: BUPIVACAINE/PF (0.5%) 5 MG/1 ML 30 ML VIAL INFILTRATI ONE ×3 (07:11→08:56)
[2020-11-11] MEDS ORDERED: propofoL 200 MG/20 ML VIAL IV ONE (07:18)
[2020-11-11] MEDS ORDERED: LIDOCAINE MPF (2%) 20 MG/1 ML VIAL 5 ML ONE (07:18)
[2020-11-11] MEDS ORDERED: ONDANSETRON 4 MG/2 ML INJ ONE (07:18)
[2020-11-11] MEDS ORDERED: ROCURONIUM 50 MG/5 ML INJ IV ONE (07:18)
[2020-11-11] MEDS ORDERED: dexAMETHasone 20 MG/5 ML VIAL ONE (07:18)
[2020-11-11] MEDS ORDERED: fentaNYL 100 MCG/2 ML INJ ONE (07:18)
[2020-11-11] MEDS ORDERED: ONDANSETRON 4 MG/2 ML INJ IV PRN (07:20)
[2020-11-11] MEDS ORDERED: HYDROmorphone 1 MG/1 ML INJ IV PRN (07:20)
[2020-11-11] MEDS ORDERED: ceFAZolin 1 GM VIAL ONE ×2 (07:42)
[2020-11-11] MEDS ORDERED: NEOSTIGMINE 10MG/10 ML INJ MDV ONE (07:57)
[2020-11-11] MEDS ORDERED: GLYCOPYRROLATE 0.4 MG/2 ML INJ ONE (07:57)
[2020-11-11] MEDS ORDERED: HYDROmorphone 1 MG/1 ML INJ ONE (08:11)
[2020-11-11] MEDS ORDERED: LACTATED RINGERS 1,000 ML ONE (08:19)
[2020-11-11] MEDS ORDERED: SODIUM CHLORIDE 0.9% IRR 1,500 ML BOTTLE IR ONE (08:55)
[2020-11-11] MEDS ORDERED: LIDOCAINE (1%) 10 MG/1 ML VIAL 20 ML MDV INFILTRATI ONE (08:56)
[2020-11-11] MEDS ORDERED: KETOROLAC 30 MG/1 ML INJ ONE (09:08)
--- NOTE | 2020-11-11 09:25 | Operative Report ---
Operative Report Operative Report: Procedure Performed: Lap cholecystectomy Date of Service: 11/11/20 Primary Surgeon: Ashlie Aleman MD Assisted by: Flores Espinoza DO Anesthesia: General Pre-Operative Diagnosis: cholelithiasis, cholecystitis Post-Operative Diagnosis: Same as pre-op Indications for Procedure: 30 year old female presented to ED abdominal pain, nausea and vomiting. Ultrasound and HIDA scans showed cholelithiasis with cholecystitis. Patient was consented for laparoscopic cholecystectomy. She signed informed consent and expressed understanding the risk and benefits. Description of Procedure(s): The patient was brought to the operating room and underwent general anesthesia after lower extremity SCD were placed. The abdomen was prepped and draped in the standard fashion. IV antibiotics were given and a time out was performed. Using a veress needle via a stab incision in the left subcostal region, the abdomen was insuflated to a pressure of 15mmHg. Using optivew technique, a 5mm trocar was placed just superior and to the left of the umbilicus. There was no gross injury noted to any intra-abdominal structures. After which working trocars were placed under direct visualization. A 12 mm trocar was placed in the epigastrium, and two more 5 mm trocars were inserted in the right lateral sites. The gallbladder was located and grasped at the fundus and retracted up toward the patient's right shoulder. The infundibulum was grasped and retracted laterally. A window was made between the cystic artery and the cystic duct, clearly delineating the two structures. These were clipped with a 5 mm clip cooler room worker and divided. The peritoneum was incised with hook cautery, and the gallbladder was taken from the liver bed, ensuring hemostatis. The endocatch bag was placed in the abdomen and the gallbladder was then removed from the abdomen. The liver bed was examined and the trocars removed under direct visualization. The insufflation was then terminated. The epigastric incision was closed with a O- vicryl suture using a suture passer device. The skin incisions were closed using 4-0 Monocryl sutures. All the wounds dressed with dermabond. The patient tolerated the procedure well, was extubated and taken to the recovery room in satisfactory condition. Finding(s): gallbladder with stones Intra-Operative Complications: none Specimens Removed: Gallbladder Estimated Blood Loss: <10ml Complications: none immediate
[2020-11-11] MEDS: HYDROmorphone 1 MG/1 ML INJ IV PRN ×4 (09:26→10:14)
[2020-11-11] MEDS ORDERED: SIMETHICONE 80 MG CHEW TAB ONE (09:54)
[2020-11-11] MEDS ORDERED: KETOROLAC 30 MG/1 ML INJ IV PRN (10:02)
[2020-11-11] MEDS ORDERED: oxyCODONE /ACETAMINOPHEN 5-325MG TAB PO PRN (10:02)
[2020-11-11] MEDS ORDERED: SIMETHICONE 80 MG CHEW TAB PO PRN (10:02)
--- NOTE | 2020-11-11 10:56 | Post Anesthesia Evaluation ---
- Post Anesthesia Evaluation Patient Participated: Yes Airway Patent: Yes Stable Respiratory Function: Yes Nausea/Vomiting: No Temp > 96.8F: Yes Pain Manageable: Yes Adequeate Hydration: Yes Anesthesia Complications: No Block Receding Appropriately: Not Applicable Patient on Ventilator: No
--- NOTE | 2020-11-11 11:00 | Event Note ---
Date: 11/11/20 Pt recently returned from PACU after an uneventful lap sangita. She says she feels nauseous but no vomiting. Pain is controlled. If nausea improves and she tolerates PO she can be discharged as soon as later today. If not in the morning. She is to see me in the office to see me in two weeks for follow up, may shower no bathing. Percocet prescription left in chart.
--- NOTE | 2020-11-11 12:01 | Discharge Summary ---
Providers - Providers Date of Admission: 11/09/20 18:49 Date of discharge: 11/11/20 Attending physician: BRENDA RODRIGUEZ 11/09/20 13:36 Consult to Physician [CONS] Urgent Comment: Consulting Provider: NARCISA ALEMAN Physician Instructions: Reason For Exam: Biliary pancreatitis Primary care physician: CATRINA ASHTON Hospitalization Condition: Good Hospital course: 30-year-old female with no past medical history comes in for right upper quadrant and right epigastric pain. Patient came yesterday and was discharged in safe condition. Patient wanted to be discharged on oral antibiotics. Patient comes back for right upper quadrant pain associated with nausea and vomiting. Also increasing abdominal pain and nausea and vomiting. Patient was reevaluated and was found to have gallstones in the gallbladder has being admitted. Pain is about 8 on a scale of 1-10. Food is a exacerbating factor. Not eating anything is a relieving factor. Here patient had an abdominal imaging that cholelithiasis with no cholecystitis. Patient admitted for evaluation. Surgery consulted 11/10. Has some abdominal pain with palpation. Also positive Keane sign. HIDA scan showed cholecystitis. Surgery on board. Plan for laparoscopic cholecystectomy tomorrow 11/11. She tolerated procedure today. She will started on a diet. She will follow up with Dr Aleman in 1-2 weeks. She agrees with plan Disposition: DC-01 TO HOME OR SELFCARE Final Discharge Diagnosis (Prints w/discharge instructions): Acute cholecystitis with cholelithiasis Time spent for discharge: 35 mins - Discharge Diagnoses (1) Cholecystitis with cholelithiasis Status: Acute (2) Cholelithiases Status: Acute Qualifiers: Cholelithiasis location: gallbladder Cholecystitis acuity: acute and chronic Core Measure Documentation - Palliative Care Palliative Care/ Comfort Measures: Not Applicable - Core Measures Any of the following diagnoses?: none Exam - Physical Exam Narrative exam: VITAL SIGNS: Reviewed. GENERAL: Awake HEAD: No signs of head trauma. EYES: Pupils are equal. Extraocular motions intact. MOUTH: Oropharynx is normal. NECK: No adenopathy, no JVD. CHEST: Chest with diminished breath sounds bilaterally. No wheezes, rales, or rhonchi. CARDIAC: normal S1 and S2, without murmurs, gallops, or rubs. ABDOMEN: Soft, slight tenderness on deep palpation around the epigastric/left upper quadrant area, bowel sounds positive MUSCULOSKELETAL: No edema NEUROLOGIC EXAM: Alert and oriented x3. No focal neurologic deficits SKIN: No obvious lesions - Constitutional Vitals: Temp Pulse Resp BP Pulse Ox 97.7 F 60 16 122/78 95 11/11/20 10:45 11/11/20 10:45 11/11/20 10:45 11/11/20 10:45 11/11/20 10:45 Plan Diet: low fat Additional Instructions: Continue pain medications only if needed. Follow up with Dr Aleman in the office in 1-2 weeks Follow up with: PRIMARY CAREMD [Referring] - 3-5 Days NARCISA ALEMAN MD [Staff Physician] - 7 Days Prescriptions: oxyCODONE /ACETAMINOPHEN [Percocet 5/325] 1 tab PO Q4HR #20 tab
[2020-11-11] MEDS ORDERED: HYDROmorphone 2 MG/1 ML INJ IV STA (13:35)
[2020-11-11 16:55] VITALS: BP 117/78
== END 2020-11-11 19:00 | disposition home or self-care (01) ==
LOC: ED 13:19 → 3A 18:49 → 3B 21:21
PROVIDERS: ADMIT Internal Medicine; ATTEND Internal Medicine
DX: K80.12 Calculus of gallbladder with acute and chronic cholecystitis without obstruction (principal); E03.9 Hypothyroidism, unspecified; R74.01 Elevation of levels of liver transaminase levels
CPT/HCPCS: 36415; 47562; 76705; 78226; 80053; 81025; 82140; 82550; 83036; 83690; 83735; 85025; 85610; 85730; 87040; 88304; 93005; 96361; 96365; 96366; 96367; 96375; 96376; 99285; A9537; G0378; J0690; J1100; J1170; J1885; J1956; J2250; J2270; J2405; J2704; J2710; J3010; J3475; J7042; J7120

== ENCOUNTER 2021-10-01 03:22 | Emergency (ER) | payer OTHER ==
[2021-10-01] MEDS ORDERED: MORPHINE 4 MG/1 ML INJ IV ONE (05:18)
[2021-10-01] MEDS ORDERED: ONDANSETRON 4 MG/2 ML INJ IV ONE (05:18)
[2021-10-01] MEDS ORDERED: SODIUM CHLORIDE 0.9% 1000 ML 1,000 ML IV ONE (05:19)
[2021-10-01 05:32] LABS: Bilirubin,Urine NEG (Negative); Blood,Urine LG (Negative); Color,Urine Yellow (Yellow); Mucus,Urine 2+ /HPF; RBC,Urine > 182.0 /HPF (0.0-6.0); Urobilinogen,Urine < 2.0 mg/dL (<2.0)
--- NOTE | 2021-10-01 06:29 | Cat Scan Report ---
CT ABDOMEN AND PELVIS WITH CONTRAST INDICATION / CLINICAL INFORMATION: Patient complains of RIGHT sided flank pain. TECHNIQUE: Axial CT images were obtained through the abdomen and pelvis after 100 cc Omnipaque [address] scans at this location are performed using CT dose reduction for ALARA by means of automated exposure control. COMPARISON: CT of abdomen and pelvis 11/08/2020 FINDINGS: LOWER CHEST: No significant abnormality of the imaged chest. LIVER: No significant abnormality. GALLBLADDER: Cholecystectomy. BILE DUCTS: No significant abnormality. SPLEEN: No significant abnormality. PANCREAS: No significant abnormality. ADRENALS: No significant abnormality. RIGHT KIDNEY / URETER: 3 mm proximal right ureteral stone just distal to the UPJ no significant obstr uctive change. LEFT KIDNEY / URETER: No significant abnormality. STOMACH / DUODENUM / SMALL BOWEL: No significant abnormality. COLON: No significant abnormality. APPENDIX: No significant abnormality. PERITONEUM: No free air or free fluid are present within the abdomen or pelvis. LYMPH NODES: No significant adenopathy. AORTA / ARTERIES: No significant abnormality. IVC / VEINS: No significant abnormality. URINARY BLADDER: No significant abnormality. REPRODUCTIVE ORGANS: No significant abnormality. ADDITIONAL ABDOMINAL/PELVIC FINDINGS: None. SKELETAL SYSTEM: No significant abnormality. IMPRESSION: 1. 3 mm proximal right ureteral stone without significant obstruction of the collecting system. Signer Name: Devon Rubio II, MD Signed: 10/01/2021 6:24 AM Workstation Name: [id number]
[2021-10-01 06:47] LABS: Basophils % (Auto) 0.5 % (0.0-1.8); Eosinophils # (Auto) 0.1 K/mm3 (0.0-0.4); Eosinophils % (Auto) 1.1 % (0.0-4.3); Hematocrit 36.3 % (30.3-42.9); Hemoglobin 11.9 gm/dl (10.1-14.3); Lymphocytes # (Auto) 1.4 K/mm3 (1.2-5.4); Lymphocytes % (Auto) 15.4 % (13.4-35.0); Mean Corpuscular HGB Conc 33 % (30-34); Mean Corpuscular Volume 87 fl (79-97); Monocytes # (Auto) 0.5 K/mm3 (0.0-0.8); Monocytes % (Auto) 5.3 % (0.0-7.3); Platelet Count 308 K/mm3 (140-440); Red Blood Count 4.16 M/mm3 (3.65-5.03); Red Cell Distribution Width 13.5 % (13.2-15.2)
[2021-10-01 07:13] LABS: Alanine Aminotransferase 9 units/L (7-56); Albumin 4.1 g/dL (3.9-5); BUN/Creatinine Ratio 13; Blood Urea Nitrogen 10 mg/dL (7-17); Hemolysis Index 9
[2021-10-01] MEDS ORDERED: TAMSULOSIN 0.4 MG CAP PO ONE (07:27)
[2021-10-01] MEDS ORDERED: KETOROLAC 30 MG/1 ML INJ IV ONE (07:27)
--- NOTE | 2021-10-01 07:28 | Emergency Department Report ---
ED Abdominal Pain HPI - General Chief Complaint: Abdominal Pain Stated Complaint: RIGHT SIDE PAIN Time Seen by Provider: 10/01/21 07:09 Source: patient Mode of arrival: Ambulatory Limitations: No Limitations - History of Present Illness Initial Comments: 31-year-old female who denies any significant past medical history presents to the ER today with complaints of right flank/right back pain. She states that it woke her up out of sleep around 230 this morning. She described as a sharp pain. She reports associated nausea but no vomiting. She denies any bowel changes. She had a normal bowel movement yesterday. She denies any UTI or any abnormal vaginal symptoms. She denies any fever or chills. She denies any URI symptoms or cough. She denies any injury. She states that she is currently on control and her last normal menstrual cycle was in July 2021. She denies being . Abdominal surgery significant for cholecystectomy. MD Complaint: abdominal pain -: This morning (around 2:30am ) Severity scale (0 -10): 2 - Related Data Previous Rx's Medication Instructions Recorded Last Taken Type HYDROcodone/APAP 5-325 [[place] 1 each PO Q6HR PRN #12 tablet 10/01/21 Unknown Rx 5/325] Ibuprofen [Motrin] 600 mg PO Q8H PRN #12 tablet 10/01/21 Unknown Rx Ondansetron [Zofran Odt] 4 mg PO Q8HR #15 tab.rapdis 10/01/21 Unknown Rx Tamsulosin [Flomax] 0.4 mg PO QDAY #5 cap 10/01/21 Unknown Rx Allergies Allergy/AdvReac Type Severity Reaction Status Date / Time No Known Allergies Allergy Unverified 11/08/20 06:09 ED Review of Systems ROS: Stated complaint: RIGHT SIDE PAIN Other details as noted in HPI Comment: All other systems reviewed and negative Constitutional: denies: chills, fever Eyes: denies: eye pain, eye discharge, vision change ENT: denies: ear pain, throat pain Respiratory: denies: cough, shortness of breath, wheezing Gastrointestinal: abdominal pain, nausea. denies: diarrhea Genitourinary: denies: urgency, dysuria, frequency, hematuria, discharge, abnormal menses, dyspareunia Musculoskeletal: back pain. denies: arthralgia, myalgia Skin: denies: rash, lesions, change in color, change in hair/nails, pruritus Neurological: denies: headache, weakness, numbness, paresthesias, confusion, abnormal gait, vertigo Psychiatric: denies: anxiety, depression, auditory hallucinations, visual hallucinations, homicidal thoughts, suicidal thoughts Hematological/Lymphatic: denies: easy bleeding, easy bruising, swollen glands ED Past Medical Hx - Past Medical History Hx Heart Attack/AMI: No Hx Congestive Heart Failure: No Additional medical history: Hypothyroid. ulcers, Abd pain - Social History Smoking Status: Never Smoker Substance Use Type: None - Medications Home Medications: Home Medications Medication Instructions Recorded Confirmed Last Taken Type HYDROcodone/APAP 5-325 [[place] 1 each PO Q6HR PRN #12 tablet 10/01/21 Unknown Rx 5/325] Ibuprofen [Motrin] 600 mg PO Q8H PRN #12 tablet 10/01/21 Unknown Rx Ondansetron [Zofran Odt] 4 mg PO Q8HR #15 tab.rapdis 10/01/21 Unknown Rx Tamsulosin [Flomax] 0.4 mg PO QDAY #5 cap 10/01/21 Unknown Rx ED Physical Exam - General Limitations: No Limitations General appearance: alert, in no apparent distress - Head Head exam: Present: atraumatic, normocephalic, normal inspection - Eye Eye exam: Present: normal appearance, PERRL, EOMI Pupils: Present: normal accommodation - Neck Neck exam: Present: normal inspection, full ROM - Respiratory Respiratory exam: Present: normal lung sounds bilaterally. Absent: respiratory distress, wheezes, rales, rhonchi, stridor - Cardiovascular Cardiovascular Exam: Present: regular rate, normal rhythm, normal heart sounds - GI/Abdominal GI/Abdominal exam: Present: soft, tenderness (Mild tenderness right upper quadrant no guarding. No rebound.). Absent: distended, guarding, rebound, rigid - Back Exam Back exam: Present: normal inspection, full ROM. Absent: CVA tenderness (R), CVA tenderness (L) - Neurological Exam Neurological exam: Present: alert, oriented X3, CN II-XII intact, normal gait - Psychiatric Psychiatric exam: Present: normal affect, normal mood ED Course Vital Signs 10/01/21 10/01/21 10/01/21 03:40 05:09 05:31 Temperature 98.0 F Pulse Rate 63 Respiratory 17 19 15 Rate Blood Pressure 111/68 [Right] O2 Sat by Pulse 98 99 Oximetry 10/01/21 06:11 Temperature 97.3 F L Pulse Rate 77 Respiratory 17 Rate Blood Pressure 130/72 [Right] O2 Sat by Pulse 100 Oximetry ED Medical Decision Making - Lab Data Result diagrams: 10/01/21 06:36 10/01/21 06:36 Abnormal Lab Results 10/01/21 10/01/21 10/01/21 05:05 06:36 06:36 WBC 9.1 RBC 4.16 Hgb 11.9 Hct 36.3 MCV 87 MCH 29 MCHC 33 RDW 13.5 Plt Count 308 Lymph % (Auto) 15.4 [place] % (Auto) 5.3 Eos % (Auto) 1.1 Baso % (Auto) 0.5 Lymph # (Auto) 1.4 [place] # (Auto) 0.5 Eos # (Auto) 0.1 Baso # (Auto) 0.0 Seg Neutrophils % 77.7 H Seg Neutrophils # 7.1 Sodium 137 Potassium 4.2 Chloride 104.0 Carbon Dioxide 19 L Anion Gap 18 BUN 10 Creatinine 0.8 Estimated GFR > 60 BUN/Creatinine Ratio 13 Glucose 102 H Calcium 9.0 Total Bilirubin 0.20 AST 13 ALT 9 Alkaline Phosphatase 56 Total Protein 7.3 Albumin 4.1 Albumin/Globulin Ratio 1.3 Lipase 42 Urine Color Yellow Urine Turbidity Slightly-cloudy Urine pH 6.0 Ur Specific [place] 1.021 Urine Protein 30 mg/dl Urine Glucose (UA) Neg Urine Ketones Neg Urine Blood Lg Urine Nitrite Neg Urine Bilirubin Neg Urine Urobilinogen < 2.0 Ur Leukocyte Esterase Neg Urine WBC (Auto) 4.0 Urine RBC (Auto) > 182.0 U Epithel Cells (Auto) 1.0 Urine Mucus 2+ - Radiology Data Radiology results: report reviewed Patient: LAKEISHA SIDDIQI MR#: [id number] : 1990 Acct:[id number] Age/Sex: 31 / F ADM Date: 10/01/21 Loc: ED Attending Dr: Ordering Physician: YURI NOEL Date of Service: 10/01/21 Procedure(s): CT abdomen pelvis w con Accession Number(s): [id number] cc: YURI NOEL CT ABDOMEN AND PELVIS WITH CONTRAST INDICATION / CLINICAL INFORMATION: Patient complains of RIGHT sided flank pain. TECHNIQUE: Axial CT images were obtained through the abdomen and pelvis after 100 cc Omnipaque [address] scans at this location are performed using CT dose reduction for ALARA by means of automated exposure control. COMPARISON: CT of abdomen and pelvis 11/08/2020 FINDINGS: LOWER CHEST: No significant abnormality of the imaged chest. LIVER: No significant abnormality. GALLBLADDER: Cholecystectomy. BILE DUCTS: No significant abnormality. SPLEEN: No significant abnormality. PANCREAS: No significant abnormality. ADRENALS: No significant abnormality. RIGHT KIDNEY / URETER: 3 mm proximal right ureteral stone just distal to the UPJ no significant obstructive change. LEFT KIDNEY / URETER: No significant abnormality. STOMACH / DUODENUM / SMALL BOWEL: No significant abnormality. COLON: No significant abnormality. APPENDIX: No significant abnormality. PERITONEUM: No free air or free fluid are present within the abdomen or pelvis. LYMPH NODES: No significant adenopathy. AORTA / ARTERIES: No significant abnormality. IVC / VEINS: No significant abnormality. URINARY BLADDER: No significant abnormality. REPRODUCTIVE ORGANS: No significant abnormality. ADDITIONAL ABDOMINAL/PELVIC FINDINGS: None. SKELETAL SYSTEM: No significant abnormality. IMPRESSION: 1. 3 mm proximal right ureteral stone without significant obstruction of the collecting system. Signer Name: Pramod Mancuso II, MD Signed: 10/01/2021 6:24 AM Workstation Name: [id number] Transcribed By: TRISTAN Dictated By: PRAMOD MANCUSO II, MD Electronically Authenticated By: PRAMOD MANCUSO II, MD Signed Date/Time: 10/01/21623 DD/ 1 TD/TT: - Medical Decision Making 31-year-old female who denies any significant past medical history presents to the ER today with complaints of right flank/right back pain. She states that it woke her up out of sleep around 230 this morning. She described as a sharp pain. She reports associated nausea but no vomiting. She denies any bowel changes. She had a normal bowel movement yesterday. She denies any UTI or any abnormal vaginal symptoms. She denies any fever or chills. She denies any URI symptoms or cough. She denies any injury. She states that she is currently on control and her last normal menstrual cycle was in July 2021. She denies being . Abdominal surgery significant for cholecystectomy. 0728: Patient was already given IV fluids, morphine and Zofran prior to me seeing her and evaluating her. This was done part of MSE work-up. Patient states that her pain is now down to a 3. All labs reviewed and shows no acute abnormalities. Urine negative for UTI. CT abdomen pelvis with IV contrast shows a 3 mm proximal right ureteral stone without any significant obstruction or hydronephrosis. Discussed all results with patient. She states that she has had kidney stones before in the past, last time was back in June of last year. She does have a urologist. Discussed treatment plan with patient. Recommend that she increase her water intake. She will make an appointment with her urologist for follow-up. At this time there is no indication for any additional testing, emergent specialist consult or admission. Repeat vital signs have been stable. Patient was stable at time of discharge. Critical care attestation.: If time is entered above; I have spent that time in minutes in the direct care of this critically ill patient, excluding procedure time. ED Disposition Clinical Impression: Kidney stone Disposition: 01 HOME / SELF CARE / HOMELESS Is pt being admited?: No Does the pt Need Aspirin: No Condition: Stable Instructions: Kidney Stones, [id number], Abdominal Pain (ED) Additional Instructions: I recommend that you take the ibuprofen, and the Tylenol threes as prescribed for pain if needed. Take the Zofran to help with nausea. Take the Flomax as discussed. Is important that you increase your water intake. Follow-up with the urologist and your primary care doctor next week. Return to the ER if your symptoms changes or worsens in any way. Prescriptions: Tamsulosin [Flomax] 0.4 mg PO QDAY #5 cap Ibuprofen [Motrin] 600 mg PO Q8H PRN #12 tablet PRN Reason: Pain HYDROcodone/APAP 5-325 [Elsie 5/325] 1 each PO Q6HR PRN #12 tablet PRN Reason: Pain Ondansetron [Zofran Odt] 4 mg PO Q8HR #15 tab.rapdis Referrals: GIRISH VILLA MD [Referring] - 3-5 Days EMELY CHAUDHARY MD [Staff Physician] - 3-5 Days Forms: Work/School Release Form(ED) Time of Disposition: 07:30
[2021-10-01 07:57] VITALS: BP 113/71
== END 2021-10-01 07:55 | disposition home or self-care (01) ==
LOC: ED 03:22
DX: N20.0 Calculus of kidney (principal)
CPT/HCPCS: 36415; 74177; 80053; 81001; 83690; 85025; 96361; 96374; 96375; 99284; J1885; J2270; J2405; J7030; Q9967; Q0162

== ENCOUNTER 2021-10-31 19:47 | Emergency (ER) | payer OTHER ==
[2021-10-31 21:32] LABS: Basophils % (Auto) 0.4 % (0.0-1.8); Eosinophils # (Auto) 0.2 K/mm3 (0.0-0.4); Eosinophils % (Auto) 1.4 % (0.0-4.3); Hematocrit 36.8 % (30.3-42.9); Hemoglobin 12.1 gm/dl (10.1-14.3); Lymphocytes # (Auto) 2.4 K/mm3 (1.2-5.4); Mean Corpuscular HGB Conc 33 % (30-34); Mean Corpuscular Volume 87 fl (79-97); Monocytes # (Auto) 0.9 K/mm3 (0.0-0.8); Monocytes % (Auto) 7.1 % (0.0-7.3); Platelet Count 341 K/mm3 (140-440); Red Blood Count 4.22 M/mm3 (3.65-5.03); Red Cell Distribution Width 13.6 % (13.2-15.2)
[2021-10-31 21:55] LABS: Alanine Aminotransferase 11 units/L (7-56); Albumin 4.5 g/dL (3.9-5); BUN/Creatinine Ratio 13; Blood Urea Nitrogen 13 mg/dL (7-17); Calcium 9.9 mg/dL (8.4-10.2); Hemolysis Index 0
[2021-10-31 22:05] LABS: Bacteria,Urine 2+ /HPF (Negative); Bilirubin,Urine NEG (Negative); Blood,Urine LG (Negative); Color,Urine Yellow (Yellow); Hyaline Casts,Urine 2 /LPF; Mucus,Urine FEW /HPF; Urobilinogen,Urine < 2.0 mg/dL (<2.0)
[2021-10-31 22:06] LABS: RBC,Urine > 182.0 /HPF (0.0-6.0)
[2021-10-31] MEDS ORDERED: ONDANSETRON 4 MG/2 ML INJ IV ONE (22:13)
[2021-10-31] MEDS ORDERED: KETOROLAC 30 MG/1 ML INJ IV ONE (22:13)
[2021-10-31] MEDS ORDERED: SODIUM CHLORIDE 0.9% 1000 ML 1,000 ML IV ONE (22:13)
--- NOTE | 2021-10-31 22:14 | Emergency Department Report ---
ED Back Pain/Injury HPI - General Chief Complaint: Abdominal Pain Stated Complaint: RIGHT SIDE PAIN Time Seen by Provider: 10/31/21 21:54 Source: patient Limitations: No Limitations - History of Present Illness Initial Comments: 31-year-old female with known history of kidney stones presents to the ER today with complaints of right flank pain. Patient reports sudden onset of pain around 630 this afternoon. She states that it radiates around to her right abdomen. She did vomit once. She denies any hematuria, dysuria, urinary frequency or odor. She states she has not taken anything for pain. She states that it feels similar to when she had a kidney stone in the past. Her last flareup was about a month ago. She currently does not have a urologist. She states that her last menstrual cycle was earlier this month. MD Complaint: other (right flank pain) -: This afternoon (Around 630) - Related Data Previous Rx's Medication Instructions Recorded Last Taken Type Fluconazole [Diflucan TAB] 200 mg PO QDAY #2 tablet 11/01/21 Unknown Rx HYDROcodone/APAP 5-325 [[place] 1 each PO Q6HR PRN #12 tablet 11/01/21 Unknown Rx 5-325 mg TAB] Ibuprofen [Motrin 600 MG tab] 600 mg PO Q8H PRN #12 tablet 11/01/21 Unknown Rx Ondansetron [Zofran ODT TAB] 4 mg PO Q8HR #15 tab.rapdis 11/01/21 Unknown Rx Tamsulosin [Flomax] 0.4 mg PO QDAY #5 cap 11/01/21 Unknown Rx cephALEXin [Keflex] 500 mg PO Q6HR #40 capsule 11/01/21 Unknown Rx Allergies Allergy/AdvReac Type Severity Reaction Status Date / Time No Known Allergies Allergy Unverified 11/08/20 06:09 ED Review of Systems ROS: Stated complaint: RIGHT SIDE PAIN Other details as noted in HPI Comment: All other systems reviewed and negative Constitutional: denies: chills, fever Eyes: denies: eye pain, eye discharge, vision change ENT: denies: ear pain, throat pain, dental pain, hearing loss, epistaxis, congestion Respiratory: denies: cough, orthopnea, shortness of breath, SOB with exertion, SOB at rest, wheezing Cardiovascular: denies: chest pain, palpitations, edema, syncope, paroxysmal nocturnal dyspnea Gastrointestinal: nausea, vomiting. denies: abdominal pain, diarrhea, constipation, hematemesis, hematochezia Genitourinary: denies: urgency, dysuria, frequency, hematuria, discharge, abnormal menses, dyspareunia Musculoskeletal: back pain, other (right flank pain ) Skin: denies: rash, lesions, change in color, change in hair/nails, pruritus Neurological: denies: headache, weakness, numbness, paresthesias, confusion, abnormal gait, vertigo Psychiatric: denies: anxiety, depression, auditory hallucinations, visual hallucinations, homicidal thoughts, suicidal thoughts Hematological/Lymphatic: denies: easy bleeding, easy bruising, swollen glands ED Past Medical Hx - Past Medical History Hx Heart Attack/AMI: No Hx Congestive Heart Failure: No Additional medical history: Hypothyroid. ulcers, Abd pain - Social History Smoking Status: Never Smoker Substance Use Type: None - Medications Home Medications: Home Medications Medication Instructions Recorded Confirmed Last Taken Type Fluconazole [Diflucan TAB] 200 mg PO QDAY #2 tablet 11/01/21 Unknown Rx HYDROcodone/APAP 5-325 [[place] 1 each PO Q6HR PRN #12 tablet 11/01/21 Unknown Rx 5-325 mg TAB] Ibuprofen [Motrin 600 MG tab] 600 mg PO Q8H PRN #12 tablet 11/01/21 Unknown Rx Ondansetron [Zofran ODT TAB] 4 mg PO Q8HR #15 tab.rapdis 11/01/21 Unknown Rx Tamsulosin [Flomax] 0.4 mg PO QDAY #5 cap 11/01/21 Unknown Rx cephALEXin [Keflex] 500 mg PO Q6HR #40 capsule 11/01/21 Unknown Rx ED Physical Exam - General Limitations: No Limitations General appearance: alert, in distress - Head Head exam: Present: atraumatic, normocephalic, normal inspection - Neck Neck exam: Present: normal inspection, full ROM. Absent: meningismus - Respiratory Respiratory exam: Present: normal lung sounds bilaterally. Absent: respiratory distress, wheezes, rales, rhonchi, stridor - Cardiovascular Cardiovascular Exam: Present: regular rate, normal rhythm, normal heart sounds - GI/Abdominal GI/Abdominal exam: Present: soft. Absent: distended, tenderness, guarding, rebound - Back Exam Back exam: Present: normal inspection, full ROM, CVA tenderness (R) - Neurological Exam Neurological exam: Present: alert, oriented X3, CN II-XII intact, normal gait - Psychiatric Psychiatric exam: Present: normal affect, normal mood - Skin Skin exam: Present: intact ED Course Vital Signs 10/31/21 10/31/21 11/01/21 20:22 23:18 00:03 Temperature 98.4 F Pulse Rate 75 Respiratory 18 16 14 Rate Blood Pressure 122/84 O2 Sat by Pulse 100 Oximetry ED Medical Decision Making - Lab Data Result diagrams: 10/31/21 21:20 10/31/21 21:20 - Radiology Data Radiology results: report reviewed Patient: LAKEISHA SIDDIQI MR#: [id number] : 1990 Acct:[id number] Age/Sex: 31 / F ADM Date: 10/31/21 Loc: ED Attending Dr: Ordering Physician: COLLEEN BELTRÁN Date of Service: 10/31/21 Procedure(s): CT abdomen pelvis wo con Accession Number(s): [id number] cc: COLLEEN BELTRÁN CT abdomen pelvis wo con INDICATION / CLINICAL INFORMATION: Right flank pain. TECHNIQUE: Axial CT imaging of abdomen and pelvis was obtained without contrast. Coronal and sagittal reformatted imaging obtained and reviewed. All CT scans at this location are performed using CT dose reduction for ALARA by means of automated exposure control. COMPARISON: Prior CT 10/01/2021 FINDINGS: CT abdomen without contrast demonstrates grossly normal appearance of the liver, spleen, pancreas, left kidney, and adrenal glands. Prior cholecystectomy. Incidental note is made of a small amount of fatty infiltration within the central aspect of the liver unchanged from prior exam. There is mild right hydronephrosis caused by a calculus in the proximal right ureter at UPJ level. Calculus measures 4 mm and is grossly unchanged in position from prior CT. CT pelvis without contrast demonstrates normal appearance of the appendix. No pelvic mass, free fluid, or focal inflammatory changes noted. GI tract is unremarkable. Uterus and adnexa are unremarkable. Visualized lung bases are clear. No acute osseous abnormality noted. IMPRESSION: 1. Mild right hydronephrosis caused by a 4 mm calculus in the proximal right u reter at the UPJ level. The calculus was present on the prior CT of 10/01/2021. There has been interval development of hydronephrosis since the prior CT. 2. No other significant finding. Signer Name: Ksenia Gregorio MD Signed: 11/01/2021 1:02 AM Workstation Name: [id number] Transcribed By: Dictated By: Ksenia Gregorio MD Electronically Authenticated By: Ksenia Gregorio MD Signed Date/Time: 11/01/21101 DD/ TD/TT: - Medical Decision Making 31-year-old appears to be feeling much better. She is resting comfortably in the recliner. She states that she still having some mild pain but not as bad as when she first came in. She is currently not toxic or ill-appearing. She is neurologically intact. Gait is normal. Vital signs are stable. Work-up today reviewed--CBC shows mild leukocytosis of 12 but otherwise unremarkable. CMP was unremarkable. Urinalysis concerning for UTI and also yeast. hCG was normal. CT abdomen pelvis shows Mild right hydronephrosis caused by a 4 mm calculus in the proximal right ureter at the UPJ level. The calculus was present on the prior CT of 10/01/2021. There has been interval development of hydronephrosis since the prior CT. Discussed all results with patient. Informed her that is very important that she follows up with a urologist for further evaluation and treatment of her kidney stone which has been persistent in the same location since September. She may need lithotripsy or stenting. Given that patient is pain is controlled, and I do not suspect sepsis patient will be discharged home with prescription for antibiotics, pain meds, antiemetics and Flomax. Patient expressed understanding of the importance of follow-up with urologist. She also unde rstands if worse to return to the ER. Patient was stable at time of discharge. Critical care attestation.: If time is entered above; I have spent that time in minutes in the direct care of this critically ill patient, excluding procedure time. ED Disposition Clinical Impression: Kidney stone on right side, UTI (urinary tract infection), Yeast vaginitis Disposition: HOME / SELF CARE / HOMELESS Is pt being admited?: No Does the pt Need Aspirin: No Condition: Stable Instructions: Kidney Stones, [id number], Renal Colic, Urinary Tract Infection, Adult, Abdominal Pain (ED) Additional Instructions: I recommend that you take the ibuprofen, the Zofran and the Flomax as prescribed. Your urine is also concerning for UTI and therefore I recommend that you start taking the Keflex as prescribed to completion. Increase your water intake. It is very important that you follow-up with urologist for further evaluation of the kidney stone. The urologist will be provided to you on your discharge instructions. Primary care doctor also be provided for your discharge instructions. Prescriptions: Fluconazole [Diflucan TAB] 200 mg PO QDAY #2 tablet Tamsulosin [Flomax] 0.4 mg PO QDAY #5 cap cephALEXin [Keflex] 500 mg PO Q6HR #40 capsule Ibuprofen [Motrin 600 MG tab] 600 mg PO Q8H PRN #12 tablet PRN Reason: Pain HYDROcodone/APAP 5-325 [[place] 5-325 mg TAB] 1 each PO Q6HR PRN #12 tablet PRN Reason: Pain Ondansetron [Zofran ODT TAB] 4 mg PO Q8HR #15 tab.rapdis Referrals: EMELY CHAUDHARY MD [Staff Physician] - 3-5 Days (URologist) NELSON VINSON MD [Staff Physician] - 3-5 Days (primary care physician) Forms: Work/School Release Form(ED) Time of Disposition: 01:12
[2021-10-31] MEDS ORDERED: MORPHINE 4 MG/1 ML INJ IV ONE (23:31)
--- NOTE | 2021-11-01 01:06 | Cat Scan Report ---
CT abdomen pelvis wo con INDICATION / CLINICAL INFORMATION: Right flank pain. TECHNIQUE: Axial CT imaging of abdomen and pelvis was obtained without contrast. Coronal and sagittal reformatte d imaging obtained and reviewed. All CT scans at this location are performed using CT dose reduction for ALARA by means of automated exposure control. COMPARISON: Prior CT 10/01/2021 FINDINGS: CT abdomen without contrast demonstrates grossly normal appearance of the liver, spleen, pancreas, le ft kidney, and adrenal glands. Prior cholecystectomy. Incidental note is made of a small amount of fa tty infiltration within the central aspect of the liver unchanged from prior exam. There is mild righ t hydronephrosis caused by a calculus in the proximal right ureter at UPJ level. Calculus measures 4 mm and is grossly unchanged in position from prior CT. CT pelvis without contrast demonstrates normal appearance of the appendix. No pelvic mass, free fluid , or focal inflammatory changes noted. GI tract is unremarkable. Uterus and adnexa are unremarkable. Visualized lung bases are clear. No acute osseous abnormality noted. IMPRESSION: 1. Mild right hydronephrosis caused by a 4 mm calculus in the proximal right ureter at the UPJ level. The calculus was present on the prior CT of 10/01/2021. There has been interval development of hydron ephrosis since the prior CT. 2. No other significant finding. Signer Name: Ksenia Gregorio MD Signed: 11/01/2021 1:02 AM Workstation Name: [id number]
[2021-11-01] MEDS ORDERED: HYDROcodone/ACETAMINOPHEN 10-325MG TAB PO ONE (01:11)
[2021-11-01] MEDS ORDERED: TAMSULOSIN 0.4 MG CAP PO ONE (01:11)
[2021-11-01] MEDS ORDERED: cephALEXin 500 MG CAP PO ONE (01:11)
[2021-11-01 04:36] VITALS: BP 142/78
== END 2021-11-01 01:57 | disposition home or self-care (01) ==
LOC: ED 19:47
DX: N20.0 Calculus of kidney (principal); N39.0 Urinary tract infection, site not specified; B37.3 Candidiasis of vulva and vagina; Z79.899 Other long term (current) drug therapy
CPT/HCPCS: 36415; 74176; 80053; 81001; 84703; 85025; 87086; 96361; 96374; 96375; 99284; J1885; J2270; J2405; J7030; Q0162